=== PATIENT | female | born 1985 | race Caucasian/White ===

== ENCOUNTER 2018-12-18 12:42 | Emergency (ER) | payer OTHER, SELFPAY ==
[2018-12-18 14:06] VITALS: BP 125/86; PULSE 76; RESP 20; TEMP 36.6; O2SAT 97
[2018-12-18 14:12] VITALS: BP 125/86
[2018-12-18] MEDS: HYDROCODONE/ACET 5/325 TABLET 1 TAB PO (14:24)
--- NOTE | 2018-12-18 14:29 | DI.RAD.S_ITS ---
PROCEDURE: XR LUMBAR SPINE 2-3V INDICATIONS: back went out, fall, heard a pop, bilat leg numbness TECHNIQUE: 3 views of the lumbar spine were acquired. COMPARISON: None. FINDINGS: Bones: 5 [id number]-ryw-eurnpcv vertebrae are present. There is normal bony alignment. 11? of convex right lumbar spine scoliosis. No vertebral body compression fractures. No suspicious bony lesions. Mild L1-L2 and L2-L3 degenerative disc disease. Soft tissues: Overlying bowel gas pattern is normal. No suspicious soft tissue calcifications. IMPRESSION: No fracture. No acute osseous lesion. If symptoms and/or clinical suspicion for pathology persists, evaluation with MRI may be helpful for further assessment. Dictated by: Shantell Quinones MD, PhD on 12/18/2018 at 14:53 Approved by: Shantell Quinones MD, PhD on 12/18/2018 at 14:54
[2018-12-18] MEDS: CYCLOBENZAPRINE 10 MG TABLET PO (15:39)
--- NOTE | 2018-12-18 16:41 | ED.BACK ---
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 She had an initial injury early last month where she was assisting a resident from bed and lifting when the resident caused her to twist following which she felt a pop in her low back and had shooting pain in her left leg. She states that she followed up at the walk-in clinic and was getting considerably better with the exercise she was doing, but pain has not fully resolved from that. She states that today she crouched down and when she went to stand up, she heard and felt an audible pop in her back. The person next to her her this as well. She states that she then had severe pain that caused her to go down her hands and knees. She states that she feels pain throughout her lower back the, radiates down the back of her legs to both knee areas but more so on the left. She states this is better standing and leaning against a wall, much worse with trying to sit. She states that she is able to walk slowly, not able to twist and bend at all. She denies any difficulty urinating, new groin numbness, or weakness or numbness in the legs and states that it is pain that keeps her from movement. She has had a dose of [place] and Flexeril and states that pain is not significantly improved. She that she has history of sciatica previously but this is not similar. She also has a history of kidney stones but this pain does not feel at all like that. She has not had any new urinary symptoms or hematuria. She does not feel like this is a new injury, thinks it is an exacerbation of what she injured last month at work. [employer] claim number: [id number] Related Data Home Medications Medication Instructions Recorded Confirmed acetaminophen 500 mg tablet 500 mg PO Q6H PRN 07/27/18 07/27/18 [id number] 250 1 tab PO Q4-6H PRN 07/27/18 07/27/18 mg-250 mg-65 mg tablet Previous Rx's Medication Instructions Recorded hydrocodone-acetaminophen [[place]] 1 tab PO Q4-6H PRN #8 tab 12/18/18 lidocaine [Lidoderm] 3 patch TOP DAILY #30 each 12/18/18 meloxicam 15 mg PO DAILY #14 tab 12/18/18 tizanidine 4 mg PO Q6-8H PRN #10 cap 12/18/18 Allergies Allergy/AdvReac Type Severity Reaction Status Date / Time sulfamethoxazole Allergy Severe Seizures, Verified 07/27/18 19:21 [From Bactrim] rash, fever, swelling trimethoprim [From Bactrim] Allergy Severe Seizures, Verified 07/27/18 19:21 rash, fever, swelling Review of Systems <Belkis Caal PA-C - Last Filed: 12/18/18 22:04> Review of Systems ROS Unobtainable: All systems reviewed & are unremarkable except as noted in HPI and below PFSH <Belkis Caal PA-C - Last Filed: 12/18/18 22:04> Medical History Lumbar strain (Chronic) Nephrolithiasis (Chronic) Radicular pain of both lower extremities (Chronic) Surgical History History of lithotripsy (Resolved) Status post ORIF of fracture of ankle (Resolved) Social History Smoking Status: Never smoker Social History Smoking Status: Never smoker Exam <Belkis Caal PA-C - Last Filed: 12/18/18 22:04> Narrative Exam Narrative: GENERAL APPEARANCE: Patient standing, appears uncomfortable, in NAD PULMONARY: Lungs clear to auscultation bilaterally CV: Regular rhythm regular without murmur, normal S1 and S2, no S3 or S4 MUSCULOSKELETAL: Mild tenderness over the mid to inferior lumbar spine, more tenderness over the inferior to mid lumbar musculature throughout, most on the left, also tender over the left SI area. She is able to fully extend the spine but can flex only to 10 or 15?, will not attempt rotation or lateral bend secondary to tenderness. She is able to walk with a timid gait but no ft drop. Lower extremity strength 5/5 bilateral hip flexors, knee extensors, foot plantar flexion. Positive left modified straight leg raise NEUROLOGIC: Sensation is grossly intact through the lower extremities DERMATOLOGIC: No exanthem Initial Vital Signs Initial Vital Signs: Vital Signs Temperature 97.9 F 12/18/18 14:06 Pulse Rate 76 12/18/18 14:06 Respiratory Rate 20 12/18/18 14:06 Blood Pressure 125/86 12/18/18 14:06 Pulse Oximetry 97 12/18/18 14:06 <Tamiko Garcia DO - Last Filed: 12/19/18 08:14> Initial Vital Signs Initial Vital Signs: Vital Signs Temperature 97.9 F 12/18/18 14:06 Pulse Rate 76 12/18/18 14:06 Respiratory Rate 20 12/18/18 14:06 Blood Pressure 125/86 12/18/18 14:06 Pulse Oximetry 97 12/18/18 14:06 Course <Belkis Caal PA-C - Last Filed: 12/18/18 22:04> Additional Information: Patient states that she was advised to fill out new L and I paperwork however she still had pain from her injury early last month and it was clearly not resolved. This appears to be a real exacerbation of her previous injury and I explained her that this should be continued under her previous claim. She agreed to return if any acutely worsening symptoms, otherwise remain off of work and follow up with previous L and I provider or clinic that she saw since she does not have a PCP. Return to work to be determined at that visit depending upon her progress. She will likely need physical therapy Orders Ordered: Discontinued Medications Hydrocodone Bitart/Acetaminophen ([place] 5/325) 1 tab PO NOW ONE Stop: 12/18/18 14:14 Last Admin: 12/18/18 14:24 Dose: 1 tab Cyclobenzaprine HCl (Flexeril) 10 mg PO NOW ONE Stop: 12/18/18 15:40 Last Admin: 12/18/18 15:39 Dose: 10 mg Ibuprofen (Advil) 800 mg PO NOW ONE Stop: 12/18/18 16:56 Last Admin: 12/18/18 17:23 Dose: 800 mg Vital Signs - 8 hr 12/18/18 14:06 12/18/18 14:12 Temperature 97.9 F Pulse Rate 76 Respiratory Rate 20 Blood Pressure 125/86 Blood Pressure [Left Arm] 125/86 Pulse Oximetry 97 <Tamiko Garcia DO - Last Filed: 12/19/18 08:14> Orders Ordered: Discontinued Medications Hydrocodone Bitart/Acetaminophen ([place] 5/325) 1 tab PO NOW ONE Stop: 12/18/18 14:14 Last Admin: 12/18/18 14:24 Dose: 1 tab Cyclobenzaprine HCl (Flexeril) 10 mg PO NOW ONE Stop: 12/18/18 15:40 Last Admin: 12/18/18 15:39 Dose: 10 mg Ibuprofen (Advil) 800 mg PO NOW ONE Stop: 12/18/18 16:56 Last Admin: 12/18/18 17:23 Dose: 800 mg Vital Signs - 8 hr 12/18/18 14:06 12/18/18 14:12 Temperature 97.9 F Pulse Rate 76 Respiratory Rate 20 Blood Pressure 125/86 Blood Pressure [Left Arm] 125/86 Pulse Oximetry 97 MDM - Back Pain/Injury <Belkis Caal PA-C - Last Filed: 12/18/18 22:04> Lab Data Point of Care Testing Test Results Negative <Tamiko Garcia DO - Last Filed: 12/19/18 08:14> Lab Data Point of Care Testing Test Results Negative Discharge Plan Departure Patient Disposition: Home Clinical Impression: Lumbar radiculopathy Strain of lumbar region Qualifiers: Encounter type: initial encounter Qualified Code(s): S39.012A - Strain of muscle, fascia and tendon of lower back, initial encounter Discharge Date/Time: 12/18/18 17:30 Interventions: ED Discharge Assessment Last Done: 12/18/18 17:27 Instructions: DI for Back Pain With Sciatica, DI for Back Spasm Activity Restrictions/Additional Instructions: Please return if you have acutely worsening symptoms as we discussed, or new symptoms such as inability to urinate or weakness in your legs. Otherwise, please rest your back. Gentle walking is okay but avoid twisting and lifting. I have sent a once daily anti-inflammatory pain medicine to the pharmacy for you for you to take as soon as you pick it up. I also sent in a different muscle relaxant called tizanidine for you to try. In addition, please try the pain patches on the most sore areas of your back, and you can use the hydrocodone/acetaminophen as needed but remember it can make you sleepy and you may need to take a stool softener with this as well as it can cause constipation. Please follow-up at the walk-in clinic in a few days to reassess. I agree with you that this is likely related to your injury from November since you were not completely better before this occurred, and you may need further treatment such as physical therapy before returning to full duty at work. You should remain off for the next few days until you follow up at the clinic for reassessment Prescriptions: New hydrocodone-acetaminophen [[place]] 5-325 mg tablet 1 tab PO Q4-6H PRN (Reason: acute sciatia/back pain) Qty: 8 RF: 0 meloxicam 15 mg tablet 15 mg PO DAILY Qty: 14 RF: 0 lidocaine [Lidoderm] 5 % adhesive patch,medicated 3 patch TOP DAILY Qty: 30 RF: 0 tizanidine 4 mg capsule 4 mg PO Q6-8H PRN (Reason: muscle spasticity) Qty: 10 RF: 0 Discontinued ibuprofen 800 mg tablet 800 mg PO TID RF: 0 No Action acetaminophen [Tylenol Extra Strength] 500 mg tablet 500 mg PO Q6H PRNRF: 0 [id number] [Excedrin Migraine] 250-250-65 mg tablet 1 tab PO Q4-6H PRNRF: 0 Referrals: Mayank Pizano PA-C [[employer]] - <Tamiko Garcia DO - Last Filed: 12/19/18 08:14> [facility] ED Attending Bethature Attestation: I was immediately available in the department for consultation. Documentation has been reviewed. I agree with assessment and plan.
--- NOTE | 2018-12-18 17:04 | ED_ITS ---
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 She had an initial injury early last month where she was assisting a resident from bed and lifting when the resident caused her to twist following which she felt a pop in her low back and had shooting pain in her left leg. She states that she followed up at the walk-in clinic and was getting considerably better with the exercise she was doing, but pain has not fully resolved from that. She states that today she crouched down and when she went to stand up, she heard and felt an audible pop in her back. The person next to her her this as well. She states that she then had severe pain that caused her to go down her hands and knees. She states that she feels pain throughout her lower back the, radiates down the back of her legs to both knee areas but more so on the left. She states this is better standing and leaning against a wall, much worse with trying to sit. She states that she is able to walk slowly, not able to twist and bend at all. She denies any difficulty urinating, new groin numbness, or weakness or numbness in the legs and states that it is pain that keeps her from movement. She has had a dose of [place] and Flexeril and states that pain is not significantly improved. She that she has history of sciatica previously but this is not similar. She also has a history of kidney stones but this pain does not feel at all like that. She has not had any new urinary symptoms or hematuria. She does not feel like this is a new injury, thinks it is an exacerbation of what she injured last month at work. [employer] claim number: [id number] Related Data Home Medications Medication Instructions Recorded Confirmed acetaminophen 500 mg tablet 500 mg PO Q6H PRN 07/27/18 07/27/18 [id number] 250 1 tab PO Q4-6H PRN 07/27/18 07/27/18 mg-250 mg-65 mg tablet Previous Rx's Medication Instructions Recorded hydrocodone-acetaminophen [[place]] 1 tab PO Q4-6H PRN #8 tab 12/18/18 lidocaine [Lidoderm] 3 patch TOP DAILY #30 each 12/18/18 meloxicam 15 mg PO DAILY #14 tab 12/18/18 tizanidine 4 mg PO Q6-8H PRN #10 cap 12/18/18 Allergies Allergy/AdvReac Type Severity Reaction Status Date / Time sulfamethoxazole Allergy Severe Seizures, Verified 07/27/18 19:21 [From Bactrim] rash, fever, swelling trimethoprim [From Bactrim] Allergy Severe Seizures, Verified 07/27/18 19:21 rash, fever, swelling Review of Systems <Belkis Caal PA-C - Last Filed: 12/18/18 22:04> Review of Systems ROS Unobtainable: All systems reviewed & are unremarkable except as noted in HPI and below PFSH <Belkis Caal PA-C - Last Filed: 12/18/18 22:04> Medical History Lumbar strain (Chronic) Nephrolithiasis (Chronic) Radicular pain of both lower extremities (Chronic) Surgical History History of lithotripsy (Resolved) Status post ORIF of fracture of ankle (Resolved) Social History Smoking Status: Never smoker Social History Smoking Status: Never smoker Exam <Belkis Caal PA-C - Last Filed: 12/18/18 22:04> Narrative Exam Narrative: GENERAL APPEARANCE: Patient standing, appears uncomfortable, in NAD PULMONARY: Lungs clear to auscultation bilaterally CV: Regular rhythm regular without murmur, normal S1 and S2, no S3 or S4 MUSCULOSKELETAL: Mild tenderness over the mid to inferior lumbar spine, more tenderness over the inferior to mid lumbar musculature throughout, most on the left, also tender over the left SI area. She is able to fully extend the spine but can flex only to 10 or 15?, will not attempt rotation or lateral bend secondary to tenderness. She is able to walk with a timid gait but no ft drop. Lower extremity strength 5/5 bilateral hip flexors, knee extensors, foot plantar flexion. Positive left modified straight leg raise NEUROLOGIC: Sensation is grossly intact through the lower extremities DERMATOLOGIC: No exanthem Initial Vital Signs Initial Vital Signs: Vital Signs Temperature 97.9 F 12/18/18 14:06 Pulse Rate 76 12/18/18 14:06 Respiratory Rate 20 12/18/18 14:06 Blood Pressure 125/86 12/18/18 14:06 Pulse Oximetry 97 12/18/18 14:06 <Tamiko Garcia DO - Last Filed: 12/19/18 08:14> Initial Vital Signs Initial Vital Signs: Vital Signs Temperature 97.9 F 12/18/18 14:06 Pulse Rate 76 12/18/18 14:06 Respiratory Rate 20 12/18/18 14:06 Blood Pressure 125/86 12/18/18 14:06 Pulse Oximetry 97 12/18/18 14:06 Course <Belkis Caal PA-C - Last Filed: 12/18/18 22:04> Additional Information: Patient states that she was advised to fill out new L and I paperwork however she still had pain from her injury early last month and it was clearly not resolved. This appears to be a real exacerbation of her previous injury and I explained her that this should be continued under her previous claim. She agreed to return if any acutely worsening symptoms, otherwise remain off of work and follow up with previous L and I provider or clinic that she saw since she does not have a PCP. Return to work to be determined at that visit depending upon her progress. She will likely need physical therapy Orders Ordered: Discontinued Medications Hydrocodone Bitart/Acetaminophen ([place] 5/325) 1 tab PO NOW ONE Stop: 12/18/18 14:14 Last Admin: 12/18/18 14:24 Dose: 1 tab Cyclobenzaprine HCl (Flexeril) 10 mg PO NOW ONE Stop: 12/18/18 15:40 Last Admin: 12/18/18 15:39 Dose: 10 mg Ibuprofen (Advil) 800 mg PO NOW ONE Stop: 12/18/18 16:56 Last Admin: 12/18/18 17:23 Dose: 800 mg Vital Signs - 8 hr 12/18/18 14:06 12/18/18 14:12 Temperature 97.9 F Pulse Rate 76 Respiratory Rate 20 Blood Pressure 125/86 Blood Pressure [Left Arm] 125/86 Pulse Oximetry 97 <Tamiko Garcia DO - Last Filed: 12/19/18 08:14> Orders Ordered: Discontinued Medications Hydrocodone Bitart/Acetaminophen ([place] 5/325) 1 tab PO NOW ONE Stop: 12/18/18 14:14 Last Admin: 12/18/18 14:24 Dose: 1 tab Cyclobenzaprine HCl (Flexeril) 10 mg PO NOW ONE Stop: 12/18/18 15:40 Last Admin: 12/18/18 15:39 Dose: 10 mg Ibuprofen (Advil) 800 mg PO NOW ONE Stop: 12/18/18 16:56 Last Admin: 12/18/18 17:23 Dose: 800 mg Vital Signs - 8 hr 12/18/18 14:06 12/18/18 14:12 Temperature 97.9 F Pulse Rate 76 Respiratory Rate 20 Blood Pressure 125/86 Blood Pressure [Left Arm] 125/86 Pulse Oximetry 97 MDM - Back Pain/Injury <Belkis Caal PA-C - Last Filed: 12/18/18 22:04> Lab Data Point of Care Testing Test Results Negative <Tamiko Garcia DO - Last Filed: 12/19/18 08:14> Lab Data Point of Care Testing Test Results Negative Discharge Plan Departure Patient Disposition: Home Clinical Impression: Lumbar radiculopathy Strain of lumbar region Qualifiers: Encounter type: initial encounter Qualified Code(s): S39.012A - Strain of muscle, fascia and tendon of lower back, initial encounter Discharge Date/Time: 12/18/18 17:30 Interventions: ED Discharge Assessment Last Done: 12/18/18 17:27 Instructions: DI for Back Pain With Sciatica, DI for Back Spasm Activity Restrictions/Additional Instructions: Please return if you have acutely worsening symptoms as we discussed, or new symptoms such as inability to urinate or weakness in your legs. Otherwise, please rest your back. Gentle walking is okay but avoid twisting and lifting. I have sent a once daily anti-inflammatory pain medicine to the pharmacy for you for you to take as soon as you pick it up. I also sent in a different muscle relaxant called tizanidine for you to try. In addition, please try the pain patches on the most sore areas of your back, and you can use the hydrocodone/acetaminophen as needed but remember it can make you sleepy and you may need to take a stool softener with this as well as it can cause constipation. Please follow-up at the walk-in clinic in a few days to reassess. I agree with you that this is likely related to your injury from November since you were not completely better before this occurred, and you may need further treatment such as physical therapy before returning to full duty at work. You should remain off for the next few days until you follow up at the clinic for reassessment Prescriptions: New hydrocodone-acetaminophen [[place]] 5-325 mg tablet 1 tab PO Q4-6H PRN (Reason: acute sciatia/back pain) Qty: 8 RF: 0 meloxicam 15 mg tablet 15 mg PO DAILY Qty: 14 RF: 0 lidocaine [Lidoderm] 5 % adhesive patch,medicated 3 patch TOP DAILY Qty: 30 RF: 0 tizanidine 4 mg capsule 4 mg PO Q6-8H PRN (Reason: muscle spasticity) Qty: 10 RF: 0 Discontinued ibuprofen 800 mg tablet 800 mg PO TID RF: 0 No Action acetaminophen [Tylenol Extra Strength] 500 mg tablet 500 mg PO Q6H PRNRF: 0 [id number]-hiroswhxfovcm-ulwjtvaa [Excedrin Migraine] 250-250-65 mg tablet 1 tab PO Q4-6H PRNRF: 0 Referrals: Mayank Pizano PA-C [[employer] Technical Director] - <Tamiko Garcia DO - Last Filed: 12/19/18 08:14> [facility] ED Attending Bethature Attestation: I was immediately available in the department for consultation. Documentation has been reviewed. I agree with assessment and plan.
[2018-12-18] MEDS: IBUPROFEN 400 MG TABLET 800 MG PO (17:23)
== END 2018-12-18 17:30 | disposition home or self-care (01) ==
PROVIDERS: Emergency Provider Internal Medicine
DX: S39.012A Strain of muscle, fascia and tendon of lower back, initial encounter (principal); M54.16 Radiculopathy, lumbar region; X50.0XXA Overexertion from strenuous movement or load, initial encounter; Y99.0 Civilian activity done for income or pay
CPT/HCPCS: 72100; 81025; 99282; 99284

== ENCOUNTER 2019-03-28 21:30 | Emergency (ER) | payer OTHER, SELFPAY ==
--- NOTE | 2019-03-28 21:31 | ED.GENADULT ---
HPI - General Adult General Chief complaint: Animal Bite Stated complaint: CAT BITES TO HANDS Time Seen by Provider: 03/28/19 21:31 Source: patient Mode of arrival: ambulatory Limitations: no limitations History of Present Illness HPI narrative: Patient is a 33-year-old female here for evaluation of cat bites and scratches to bilateral hands. 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 She states that 1 of the residents light and a stray cat and when the patient tried to get the cat out the door it started biting her. She does not know when her last tetanus shot was. She did wash her hands prior to my arrival. This was a stray cat. Related Data Home Medications Medication Instructions Recorded Confirmed acetaminophen 500 mg tablet 500 mg PO Q6H PRN 07/27/18 07/27/18 ivbahtw-mimciryhtszor-npzvhoap 250 1 tab PO Q4-6H PRN 07/27/18 07/27/18 mg-250 mg-65 mg tablet Previous Rx's Medication Instructions Recorded lidocaine [Lidoderm] 3 patch TOP DAILY #30 each 12/18/18 meloxicam 15 mg PO DAILY #14 tab 12/18/18 tizanidine 4 mg PO Q6-8H PRN #10 cap 12/18/18 tamsulosin 0.4 mg capsule 0.4 mg PO DAILY #14 cap 03/09/19 amoxicillin-pot clavulanate 1 tab PO BID 7 Days #14 tab 03/28/19 [Augmentin] Allergies Allergy/AdvReac Type Severity Reaction Status Date / Time sulfamethoxazole Allergy Severe Seizures, Verified 03/28/19 21:39 [From Bactrim] rash, fever, swelling trimethoprim [From Bactrim] Allergy Severe Seizures, Verified 03/28/19 21:39 rash, fever, swelling Review of Systems Constitutional Denies fever(s) Cardiovascular Denies dyspnea Respiratory Denies dyspnea Musculoskeletal Denies myalgias, Denies arthralgias and Denies tingling Integumentary/Breasts Comments: Multiple scratches to bilateral hands Neurologic Denies tingling and Denies paresthesias Hematologic/Lymphatic Denies easy bleeding and Denies easy bruising [facility] [place] Medical History Lumbar strain (Chronic) Nephrolithiasis (Chronic) Radicular pain of both lower extremities (Chronic) Surgical History (Updated 12/18/18 @ 17:02 by Belkis Caal PA-C) History of lithotripsy (Resolved) Status post ORIF of fracture of ankle (Resolved) Social History Smoking Status: Never smoker Social History Smoking Status: Never smoker Exam Initial Vital Signs Initial Vital Signs: Vital Signs Temperature 97.7 F 03/28/19 21:39 Pulse Rate 97 H 03/28/19 21:39 Respiratory Rate 16 03/28/19 21:39 Blood Pressure 172/109 H 03/28/19 21:39 Pulse Oximetry 98 03/28/19 21:39 Const General: cooperative, healthy appearing, comfortable, well developed, well groomed and No acute distress Orientation: alert and awake Cardio Pulses: radial pulses present bilaterally Skin Other: Patient with multiple puncture wounds and superficial scratches to bilateral hands. No active bleeding. Neuro Sensory Exam: no sensory deficits noted Extrem Other: Full range of motion of wrists and finger joints in bilateral hands. Course Orders Ordered: ED Orders 03/28/19 21:36 XR hand LT min 3V Stat XR hand RT min 3V Stat Discontinued Medications Amoxicillin/Clavulanate Potassium (Augmentin 875-125 Mg) 1 tab PO NOW ONE Stop: 03/28/19 21:37 Last Admin: 03/28/19 21:48 Dose: 1 tab Diphtheria/Tetanus/Acell Pertussis (Adacel) 0.5 ml IM .ONCE ONE Stop: 03/28/19 21:37 Last Admin: 03/28/19 21:48 Dose: 0.5 ml Vital Signs - 8 hr 03/28/19 21:39 Temperature 97.7 F Pulse Rate 97 H Respiratory Rate 16 Blood Pressure 172/109 H Pulse Oximetry 98 Medical Decision Making Imaging Data X-ray left hand: Radiologist's impression: [address] [address] XRay Report Signed Patient: Pavithra Comer MMR#: [id number] : 1985Acct:[id number] Age/Sex: 33 / FDate of Service: 03/28/19 Loc: ED Accession Number: [id number] Procedure: XR hand LT min 3V Ordering Provider: Jasper Geiger D.O. PROCEDURE: XR HAND LT MIN 3V INDICATIONS: Cat bite. Eval for foreign body TECHNIQUE: 3 views of the hand(s) acquired. COMPARISON: [facility], , XR HAND RT MIN 3V, 03/28/2019, 21:41. FINDINGS: Bones: No fractures or dislocations. Carpal bones are normally aligned. No suspicious bony lesions. Soft tissues: No radiopaque foreign bodies or suspicious soft tissue calcifications. IMPRESSION: 1. No fracture or radiopaque foreign bodies. Dictated by: Harjinder Adorno M.D. on 03/28/2019 at 22:28 Approved by: Harjinder Adorno M.D. on 03/28/2019 at 22:31 X-ray right hand: Radiologist's impression: [address] [address] XRay Report Signed Patient: Pavithra Comer MMR#: [id number] : 1985Acct:[id number] Age/Sex: 33 / FDate of Service: 03/28/19 Loc: ED Accession Number: [id number] Procedure: XR hand RT min 3V Ordering Provider: Jasper Geiger D.O. PROCEDURE: XR HAND RT MIN 3V INDICATIONS: Cat bite eval for foreign body TECHNIQUE: 3 views of the hand(s) acquired. COMPARISON: None. FINDINGS: Bones: No fractures or dislocations. Carpal bones are normally aligned. No suspicious bony lesions. Soft tissues: No radiopaque foreign bodies or suspicious soft tissue calcifications. IMPRESSION: 1. No fracture or radiopaque foreign bodies. Dictated by: Harjinder Adorno M.D. on 03/28/2019 at 22:32 Approved by: Harjinder Adorno M.D. on 03/28/2019 at 22:32 [facility] Narrative Medical decision making narrative: Patient's tetanus was updated. X-ray showed no signs of foreign bodies. All of the scratches and puncture wounds are superficial. No intervention needed here in the emergency department. She was cleaned extensively. She was given a 1st dose of antibiotics here in the emergency department a prescription for Augmentin to take home. No restrictions on her daily activities at work. I do feel this is a low risk for rabies. Will hold on any treatment for that now. Patient was given return precautions and follow-up instructions. She expressed understanding and agreement with plan. Discharge Plan Departure Patient Disposition: Home Clinical Impression: Bite by animal Cat bite Qualifiers: Encounter type: initial encounter Qualified Code(s): W55.01XA - Bitten by cat, initial encounter Instructions: DI for Animal Bites, DI for Cat Bite Activity Restrictions/Additional Instructions: Keep your hands clean using soap and water. You were given your 1st dose of antibiotics here in the emergency department. Fill the prescription and start taking them as directed tomorrow. Contact your primary care provider for a follow-up. Return to the emergency department for any new or worsening symptoms Prescriptions: New amoxicillin-pot clavulanate [Augmentin] 875-125 mg tablet 1 tab PO BID 7 Days Qty: 14 RF: 0 No Action acetaminophen [Tylenol Extra Strength] 500 mg tablet 500 mg PO Q6H PRNRF: 0 fqdhlqk-ebtaprvatxuio-gvqtarrk [Excedrin Migraine] 250-250-65 mg tablet 1 tab PO Q4-6H PRNRF: 0 tamsulosin 0.4 mg capsule 0.4 mg PO DAILY Qty: 14 RF: 0 meloxicam 15 mg tablet 15 mg PO DAILY Qty: 14 RF: 0 lidocaine [Lidoderm] 5 % adhesive patch,medicated 3 patch TOP DAILY Qty: 30 RF: 0 tizanidine 4 mg capsule 4 mg PO Q6-8H PRN (Reason: muscle spasticity) Qty: 10 RF: 0
--- NOTE | 2019-03-28 21:36 | DI.RAD.S_ITS ---
PROCEDURE: XR HAND RT MIN 3V INDICATIONS: Cat bite eval for foreign body TECHNIQUE: 3 views of the hand(s) acquired. COMPARISON: None. FINDINGS: Bones: No fractures or dislocations. Carpal bones are normally aligned. No suspicious bony lesions. Soft tissues: No radiopaque foreign bodies or suspicious soft tissue calcifications. IMPRESSION: 1. No fracture or radiopaque foreign bodies. Dictated by: Harjinder Adorno M.D. on 03/28/2019 at 22:32 Approved by: Harjinder Adorno M.D. on 03/28/2019 at 22:32
--- NOTE | 2019-03-28 21:36 | DI.RAD.S_ITS ---
PROCEDURE: XR HAND LT MIN 3V INDICATIONS: Cat bite. Eval for foreign body TECHNIQUE: 3 views of the hand(s) acquired. COMPARISON: [facility], CR, XR HAND RT MIN 3V, 03/28/2019, 21:41. FINDINGS: Bones: No fractures or dislocations. Carpal bones are normally aligned. No suspicious bony lesions. Soft tissues: No radiopaque foreign bodies or suspicious soft tissue calcifications. IMPRESSION: 1. No fracture or radiopaque foreign bodies. Dictated by: Harjinder Adorno M.D. on 03/28/2019 at 22:28 Approved by: Harjinder Adorno M.D. on 03/28/2019 at 22:31
[2019-03-28 21:39] VITALS: BP 172/109; PULSE 97; RESP 16; TEMP 36.5; O2SAT 98; BMI 34.0
[2019-03-28] MEDS: TET,DIPH,PERTUSS(ACELL),VAC/PF 0.5 ML SYRINGE IM (21:48)
[2019-03-28] MEDS: AMOXICILLIN/CLAV 875/125 MG 1 TAB PO (21:48)
--- NOTE | 2019-03-28 21:55 | PC.NURSE ---
Patient has multiple scratches and cuts to hand. None of significant depth.
[2019-03-28 22:35] VITALS: BP 160/91; PULSE 82; RESP 18; TEMP 36.5; O2SAT 96
== END 2019-03-28 22:35 | disposition home or self-care (01) ==
PROVIDERS: Emergency Provider Emergency Medicine
DX: S60.512A Abrasion of left hand, initial encounter (principal); S60.511A Abrasion of right hand, initial encounter; W55.01XA Bitten by cat, initial encounter; Y99.0 Civilian activity done for income or pay; Z23 Encounter for immunization
CPT/HCPCS: 73130; 90471; 99283; 90715

== ENCOUNTER 2019-05-23 15:16 | Emergency (ER) | payer OTHER, SELFPAY ==
[2019-05-23 15:27] VITALS: BP 148/93; PULSE 77; RESP 20; TEMP 36.5; O2SAT 98; BMI 33.5
[2019-05-23] MEDS: SODIUM CHLORIDE 0.9% 500 ML 1000 ML IV (18:17)
[2019-05-23] MEDS: KETOROLAC 60 MG/2 ML VIAL 30 MG IV (18:17)
[2019-05-23] MEDS: ONDANSETRON 4 MG/2 ML INJ IV (18:17)
--- NOTE | 2019-05-23 18:19 | DI.CT.S_ITS ---
PROCEDURE: CT KIDNEY URETER BLADDER (KUB) INDICATIONS: flank pain, hx stones TECHNIQUE: Noncontrast 5 mm thick sections acquired from the diaphragms to the symphysis. 5 mm thick coronal and sagittal reformats were then performed. For radiation dose reduction, the following was used: automated exposure control, adjustment of mA and/or kV according to patient size. COMPARISON: None. FINDINGS: Image quality: Excellent. Lung bases: Lung bases are clear. Heart size is normal. Urinary system: Both kidneys are normal in size. Small, 1 mm nonobstructing stone is noted in the right kidney. A small 1-2 mm nonobstructing stone is noted in the left kidney. There is a 6 mm in diameter stone in the left UVJ causing moderate left-sided hydroureteronephrosis. No right-sided hydronephrosis. . Bladder wall thickness is normal; no calcified bladder stones. Other solid organs: Liver is normal in size. Diffuse fatty infiltration of the liver. Gallbladder is within normal limits. Pancreas is normal in contours. Spleen is normal in size. No adrenal nodules. Peritoneum and bowel: Unenhanced bowel loops demonstrate normal wall thickness and caliber. No free fluid or air. Nodes and vessels: No retroperitoneal or mesenteric adenopathy by size criteria. Aorta and inferior vena cava are normal in caliber. Abdominal wall: No ventral hernias. Pelvis: No free pelvic fluid. No inguinal hernias or adenopathy. Intrauterine device is positioned centrally within the uterus. Bones: No suspicious bony lesions. No vertebral body compression fractures. IMPRESSION: 1. 6 mm left UVJ stone causing moderate left-sided hydroureteronephrosis. 2. Small 1-2 mm non-obstructing bilateral renal stones. 3. Diverticulosis. Dictated by: Shantell Quinones MD, PhD on 05/23/2019 at 19:01 Approved by: Shantell Quinones MD, PhD on 05/23/2019 at 19:04
[2019-05-23 18:25] LABS: Add Manual Diff / Slide Review NO; Basophils Absolute Auto 100 /uL (0-100); Basophils Percent Auto 0.4 % (0-2); Eosinophils Absolute Auto 100 /uL (0-450); Eosinophils Percent Auto 0.4 % (2-4); Hematocrit 43.4 % (36-46); Hemoglobin 14.8 g/dL (12.0-16.0); Lymphocytes Absolute Auto 1700 /uL (1100-4500); Lymphocytes Percent Auto 11.9 % (25-40); Mean Corpuscular HGB Conc 34.2 % (30-36); Mean Corpuscular Hemoglobin 30.5 PG (26-34); Mean Corpuscular Volume 89.3 fL (80-100); Monocytes Absolute Auto 800 /uL (0-900); Monocytes Percent Auto 5.9 % (3-14); Neutrophils Absolute Auto 11700 /uL (1500-7000); Neutrophils Percent Auto 81.4 % (50-75); Platelet Count 412 X10^3/uL (150-400); Red Blood Cell Count 4.86 X10^6/uL (4.0-5.2); Red Cell Distribution Width 12.5 % (11.6-14.8); White Blood Cell Count 14.4 X10^3/uL (4.5-11.0)
[2019-05-23 18:31] VITALS: BP 139/87; PULSE 79; RESP 17; O2SAT 100
[2019-05-23 18:33] LABS: Alanine Aminotransferase 85 IU/L (9-52); Albumin 4.5 g/dL (3.5-5.0); Albumin Globulin Ratio 1.3 (1.0-2.8); Alkaline Phosphatase 93 U/L (38-126); Amylase 60 U/L (30-110); Aspartate Aminotransferase 62 IU/L (14-36); BUN Creatinine Ratio 11.1 (6-22); Bilirubin Total 0.9 mg/dL (0.2-1.3); Blood Urea Nitrogen 10 mg/dL (7-17); Calcium 9.4 mg/dL (8.4-10.2); Carbon Dioxide 26 mmol/L (22-32); Chloride 102 mmol/L (98-107); Estimated Glomerular Filt Rate > 60.0 mL/min (>60); Globulin 3.4 g/dL (1.7-4.1); Glucose 99 mg/dL (70-100); Lipase 41 U/L (23-300); Sodium 138 mmol/L (137-145); Total Protein 7.9 g/dL (6.3-8.2)
[2019-05-23 18:36] LABS: HEMOLYSIS 52 (0-50)
[2019-05-23 18:37] LABS: Potassium 4.3 mmol/L (3.4-5.1)
[2019-05-23 18:59] LABS: WBC Urine None Seen (0-5/HPF)
[2019-05-23 19:11] LABS: Amorphous Sediment Urine 1+; Bacteria Urine Few (2-10); RBC Urine 5-10/HPF (0-5/HPF)
[2019-05-23 19:12] LABS: Culture Indicated Urine Cult Not Indicated; Squamous Epithelial Cell Urine 1-5 /HPF (0-5/HPF)
[2019-05-23] MEDS: HYDROCODONE/ACET 5/325 TABLET 2 TAB PO (19:34)
[2019-05-23] MEDS: MORPHINE 4 MG/ML INJ IV (19:35)
[2019-05-23] MEDS: HYDROMORPHONE 0.5 MG INJ IV (20:24)
[2019-05-23 20:25] VITALS: BP 139/93; PULSE 81; RESP 18; O2SAT 98
--- NOTE | 2019-05-23 20:31 | ED.FEMALEGU ---
HPI - Female Genitourinary <FABIAN Asencio - Last Filed: 05/23/19 20:52> General Chief complaint: Urogenital-Female Stated complaint: Kidney Stones Time Seen by Provider: 05/23/19 16:57 Source: patient Mode of arrival: ambulatory Limitations: no limitations History of Present Illness HPI Narrative: The patient is a 33-year-old female current smoker with history of kidney stones who presents with a chief complaint of left flank pain. She states it started 4:00 a.m.. She believes she has another kidney stone. She tried 2 doses of ibuprofen, was recently at 10:00 a.m.. She has been trying to push fluids, but the pain got so bad she vomited. She denies any dysuria urgency or frequency. She denies any vaginal symptoms. She denies any fevers. She denies any hematuria. Related Data Home Medications Medication Instructions Recorded Confirmed acetaminophen 500 mg tablet 500 mg PO Q6H PRN 07/27/18 07/27/18 aadhmxh-pwnyeoobfqsqf-fewcgfce 250 1 tab PO Q4-6H PRN 07/27/18 07/27/18 mg-250 mg-65 mg tablet Previous Rx's Medication Instructions Recorded lidocaine [Lidoderm] 3 patch TOP DAILY #30 each 12/18/18 meloxicam 15 mg PO DAILY #14 tab 12/18/18 tizanidine 4 mg PO Q6-8H PRN #10 cap 12/18/18 tamsulosin 0.4 mg capsule 0.4 mg PO DAILY #14 cap 03/09/19 hydrocodone-acetaminophen [[place]on [place]y] 1 tab PO Q4-6H PRN #10 tab 05/23/19 ketorolac 10 mg PO TID PRN #20 tab 05/23/19 ondansetron 4 mg PO Q6H PRN #30 tab 05/23/19 tamsulosin [Flomax] 0.4 mg PO DAILY #7 cap 05/23/19 Allergies Allergy/AdvReac Type Severity Reaction Status Date / Time sulfamethoxazole Allergy Severe Seizures, Verified 03/28/19 21:39 [From Bactrim] rash, fever, swelling trimethoprim [From Bactrim] Allergy Severe Seizures, Verified 03/28/19 21:39 rash, fever, swelling Review of Systems <FABIAN Asencio - Last Filed: 05/23/19 20:52> Review of Systems GENERAL: Denies chills, fatigue, malaise, fever, sweats. HEENT: Denies sinus pain, ear pain, sore throat, difficulty swallowing, dizziness. RESPIRATORY: Denies dyspnea, cough, wheezing, hemoptysis, sputum. CARDIOVASCULAR: Denies chest pain, palpitations, orthopnea, edema, GASTROINTESTINAL: See HPI : See HPI MUSCULOSKELETAL: denies weakness, joint pain, or bony pain SKIN: Denies rash, skin lesions, or other NEUROLOGIC: Denies weakness, headache, numbness, change in speech, confusion, seizures, incoordination. PSYCHIATRIC: No concerning psychosocial issues. 12 point review of systems is negative except for those stated above PFSH <FABIAN Asencio - Last Filed: 05/23/19 20:52> Medical History Lumbar strain (Chronic) Nephrolithiasis (Chronic) Radicular pain of both lower extremities (Chronic) Surgical History History of lithotripsy (Resolved) Status post ORIF of fracture of ankle (Resolved) Social History Smoking Status: Never smoker Social History Smoking Status: Never smoker Exam <FABIAN Asencio - Last Filed: 05/23/19 20:52> Narrative Exam Narrative: GENERAL: This is a well-nourished, well-developed patient, in mild distress. HEAD: Atraumatic. Normocephalic. No temporal or scalp tenderness. EYES: Pupils equal round and reactive. Extraocular motions intact. No scleral icterus. No injection or drainage. ENT: Nose without bleeding, purulent drainage or septal hematoma. Throat without erythema, tonsillar hypertrophy or exudate. Uvula midline. Airway patent. NECK: Trachea midline. No JVD or lymphadenopathy. Supple, nontender, no meningeal signs. CARDIOVASCULAR: Regular rate and rhythm RESPIRATORY: Clear to auscultation. Breath sounds equal bilaterally. No wheezes, rales, or rhonchi. GASTROINTESTINAL: Abdomen soft, slight pain to palpation left lower quadrant., nondistended. No hepato-splenomegaly, or palpable masses. No guarding. Active bowel sounds all 4 quadrants. EXTREMITIES: No clubbing, cyanosis, or edema. No joint tenderness, effusion, or edema noted. BACK: Nontender without deformity or crepitance. CVA tenderness left side. NEURO: AOx3. SKIN: No rash or erythema. Initial Vital Signs Initial Vital Signs: Vital Signs Temperature 97.7 F 05/23/19 15:27 Pulse Rate 77 05/23/19 15:27 Respiratory Rate 20 05/23/19 15:27 Blood Pressure 148/93 H 05/23/19 15:27 Pulse Oximetry 98 05/23/19 15:27 <Claire Peters MD - Last Filed: 05/24/19 03:48> Initial Vital Signs Initial Vital Signs: Vital Signs Temperature 97.7 F 05/23/19 15:27 Pulse Rate 77 05/23/19 15:27 Respiratory Rate 20 05/23/19 15:27 Blood Pressure 148/93 H 05/23/19 15:27 Pulse Oximetry 98 05/23/19 15:27 Course <LISA Asencio-BC - Last Filed: 05/23/19 20:52> Orders Ordered: Discontinued Medications Hydrocodone Bitart/Acetaminophen ([place] 5/325) 2 tab PO NOW ONE Stop: 05/23/19 19:20 Last Admin: 05/23/19 19:34 Dose: 2 tab Hydromorphone HCl (Dilaudid) 0.5 mg IV NOW ONE Stop: 05/23/19 20:05 Last Admin: 05/23/19 20:24 Dose: 0.5 mg Sodium Chloride (Normal Saline 0.9%) 500 mls @ 1,000 mls/hr IV BOLUS ONE Stop: 05/23/19 17:45 Last Infusion: 05/23/19 19:30 Dose: 1,000 mls/hr Admin: 05/23/19 18:17 Dose: 1,000 mls/hr Ketorolac Tromethamine (Toradol) 30 mg IV NOW ONE Stop: 05/23/19 17:17 Last Admin: 05/23/19 18:17 Dose: 30 mg Morphine Sulfate (Morphine) 4 mg IV NOW ONE Stop: 05/23/19 18:56 Last Admin: 05/23/19 19:35 Dose: 4 mg Ondansetron HCl (Zofran) 4 mg IV NOW ONE Stop: 05/23/19 17:17 Last Admin: 05/23/19 18:17 Dose: 4 mg Vital Signs - 8 hr 05/23/19 20:25 Pulse Rate 81 Respiratory Rate 18 Blood Pressure [Right Arm] 139/93 H Pulse Oximetry 98 <Claire Peters MD - Last Filed: 05/24/19 03:48> Orders Ordered: Discontinued Medications Hydrocodone Bitart/Acetaminophen ([place] 5/325) 2 tab PO NOW ONE Stop: 05/23/19 19:20 Last Admin: 05/23/19 19:34 Dose: 2 tab Hydromorphone HCl (Dilaudid) 0.5 mg IV NOW ONE Stop: 05/23/19 20:05 Last Admin: 05/23/19 20:24 Dose: 0.5 mg Sodium Chloride (Normal Saline 0.9%) 500 mls @ 1,000 mls/hr IV BOLUS ONE Stop: 05/23/19 17:45 Last Infusion: 05/23/19 19:30 Dose: 1,000 mls/hr Admin: 05/23/19 18:17 Dose: 1,000 mls/hr Ketorolac Tromethamine (Toradol) 30 mg IV NOW ONE Stop: 05/23/19 17:17 Last Admin: 05/23/19 18:17 Dose: 30 mg Morphine Sulfate (Morphine) 4 mg IV NOW ONE Stop: 05/23/19 18:56 Last Admin: 05/23/19 19:35 Dose: 4 mg Ondansetron HCl (Zofran) 4 mg IV NOW ONE Stop: 05/23/19 17:17 Last Admin: 05/23/19 18:17 Dose: 4 mg Vital Signs - 8 hr 05/23/19 20:25 Pulse Rate 81 Respiratory Rate 18 Blood Pressure [Right Arm] 139/93 H Pulse Oximetry 98 MDM - Female Genitourinary <LISA Asencio- - Last Filed: 05/23/19 20:52> Lab Data Result diagrams: 05/23/19 18:13 05/23/19 18:13 Lab Results 05/23/19 05/23/19 05/23/19 Range/Units 17:50 18:13 18:13 WBC 14.4 H (4.5-11.0) X10^3/uL RBC 4.86 (4.0-5.2) X10^6/uL Hgb 14.8 (12.0-16.0) g/dL Hct 43.4 (36-46) % MCV 89.3 (80-100) fL MCH 30.5 (26-34) PG MCHC 34.2 (30-36) % RDW 12.5 (11.6-14.8) % Plt Count 412 H (150-400) X10^3/uL Neut % (Auto) 81.4 H (50-75) % Lymph % (Auto) 11.9 L (25-40) % Weld % (Auto) 5.9 (3-14) % Eos % (Auto) 0.4 L (2-4) % Baso % (Auto) 0.4 (0-2) % Neut # (Auto) 11002 H (7607-4967) /uL Lymph # (Auto) 1700 (4563-1785) /uL Weld # (Auto) 800 (0-900) /uL Eos # (Auto) 100 (0-450) /uL Baso # (Auto) 100 (0-100) /uL Sodium 138 (137-145) mmol/L Potassium 4.3 (3.4-5.1) mmol/L Chloride 102 (98-107) mmol/L Carbon Dioxide 26 (22-32) mmol/L BUN 10 (7-17) mg/dL Creatinine 0.90 (0.52-1.04) mg/dL Estimated GFR > 60.0 (>60) mL/min BUN/Creatinine Ratio 11.1 (6-22) Glucose 99 (70-100) mg/dL Calcium 9.4 (8.4-10.2) mg/dL Total Bilirubin 0.9 (0.2-1.3) mg/dL AST 62 H (14-36) IU/L ALT 85 H (9-52) IU/L Alkaline Phosphatase 93 (38-126) U/L Total Protein 7.9 (6.3-8.2) g/dL Albumin 4.5 (3.5-5.0) g/dL Globulin 3.4 (1.7-4.1) g/dL Albumin/Globulin Ratio 1.3 (1.0-2.8) Amylase 60 (30-110) U/L Lipase 41 (23-300) U/L Urine RBC 5-10/hpf H (0-5/HPF) Urine WBC None seen (0-5/HPF) Ur Squamous Epith Cells 1-5 /hpf (0-5/HPF) Amorphous Sediment 1+ Urine Bacteria Few (2-10) H (None) Ur Culture Indicated? Cult not indicated Point of Care Testing Test Results Negative Urine Dip Bedside Urine Glucose Negative Bedside Urine Bilirubin + 1 Bedside Urine Ketone +/- 5 Urine Specific [place] 1.030 Bedside Urine Occult Blood +++ Bedside Urine pH 6.0 Bedside Urine Protein + 30 Bedside Urine Urobilinogen +/- 1mg Bedside Urine Nitrite - Negative Bedside Urine Leukocytes - Negative Esterase MDM Narrative Medical decision making narrative: The patient is a 33-year-old female with history of kidney stones who presents with left-sided flank pain. She has a 6 mm stone at the UVJ on CT. There are no Bacteria or nitrites on her urinalysis at this point time, the urine cultures pending at this time. She also denies any symptoms of urinary tract infection and does not want antibiotics at this time, stating ?this usually happens. I discussed at length her pain control, nausea control, pushing fluids, straining her urine etc. Encouraged patient to follow up with PCP in the next few days. I gave her prescriptions of Von Ormy, Zofran and Flomax. Discussed coming back to the ER for any acute concerns such as inability keep down fluids. <Claire Peters MD - Last Filed: 05/24/19 03:48> Lab Data Lab Results 05/23/19 05/23/19 05/23/19 Range/Units 17:50 18:13 18:13 WBC 14.4 H (4.5-11.0) X10^3/uL RBC 4.86 (4.0-5.2) X10^6/uL Hgb 14.8 (12.0-16.0) g/dL Hct 43.4 (36-46) % MCV 89.3 (80-100) fL MCH 30.5 (26-34) PG MCHC 34.2 (30-36) % RDW 12.5 (11.6-14.8) % Plt Count 412 H (150-400) X10^3/uL Neut % (Auto) 81.4 H (50-75) % Lymph % (Auto) 11.9 L (25-40) % Weld % (Auto) 5.9 (3-14) % Eos % (Auto) 0.4 L (2-4) % Baso % (Auto) 0.4 (0-2) % Neut # (Auto) 79723 H (5021-5680) /uL Lymph # (Auto) 1700 (1828-5992) /uL Weld # (Auto) 800 (0-900) /uL Eos # (Auto) 100 (0-450) /uL Baso # (Auto) 100 (0-100) /uL Sodium 138 (137-145) mmol/L Potassium 4.3 (3.4-5.1) mmol/L Chloride 102 (98-107) mmol/L Carbon Dioxide 26 (22-32) mmol/L BUN 10 (7-17) mg/dL Creatinine 0.90 (0.52-1.04) mg/dL Estimated GFR > 60.0 (>60) mL/min BUN/Creatinine Ratio 11.1 (6-22) Glucose 99 (70-100) mg/dL Calcium 9.4 (8.4-10.2) mg/dL Total Bilirubin 0.9 (0.2-1.3) mg/dL AST 62 H (14-36) IU/L ALT 85 H (9-52) IU/L Alkaline Phosphatase 93 (38-126) U/L Total Protein 7.9 (6.3-8.2) g/dL Albumin 4.5 (3.5-5.0) g/dL Globulin 3.4 (1.7-4.1) g/dL Albumin/Globulin Ratio 1.3 (1.0-2.8) Amylase 60 (30-110) U/L Lipase 41 (23-300) U/L Urine RBC 5-10/hpf H (0-5/HPF) Urine WBC None seen (0-5/HPF) Ur Squamous Epith Cells 1-5 /hpf (0-5/HPF) Amorphous Sediment 1+ Urine Bacteria Few (2-10) H (None) Ur Culture Indicated? Cult not indicated Point of Care Testing Test Results Negative Urine Dip Bedside Urine Glucose Negative Bedside Urine Bilirubin + 1 Bedside Urine Ketone +/- 5 Urine Specific [place] 1.030 Bedside Urine Occult Blood +++ Bedside Urine pH 6.0 Bedside Urine Protein + 30 Bedside Urine Urobilinogen +/- 1mg Bedside Urine Nitrite - Negative Bedside Urine Leukocytes - Negative Esterase Discharge Plan Departure Patient Disposition: Home Clinical Impression: Left ureteral calculus Discharge Date/Time: 05/23/19 20:48 Interventions: ED Discharge Assessment Last Done: 05/23/19 20:47 Instructions: DI for Kidney Stones Activity Restrictions/Additional Instructions: You have a 6 mm kidney stone on the your left side. Home I have given you prescriptions for nausea. I have given you Von Ormy. This can be constipating and sedating. I have also given you a prescription of ketorolac, which is an anti-inflammatory. Do not combine this with ibuprofen Aleve or any other NSAIDs. Please push fluids. Please strain your urine. Please monitor for signs of infection. Urine culture is pending at this time. Please follow up with primary care provider in the next few days, especially if you do not passed her stone. You may need to follow up with Urology. Prescriptions: New hydrocodone-acetaminophen [Von [place]] 5-325 mg tablet 1 tab PO Q4-6H PRN (Reason: pain) Qty: 10 RF: 0 ketorolac 10 mg tablet 10 mg PO TID PRN (Reason: pain) Qty: 20 RF: 0 tamsulosin [Flomax] 0.4 mg capsule 0.4 mg PO DAILY Qty: 7 RF: 0 ondansetron 4 mg tablet,disintegrating 4 mg PO Q6H PRN (Reason: nausea and vomiting) Qty: 30 RF: 0 No Action acetaminophen [Tylenol Extra Strength] 500 mg tablet 500 mg PO Q6H PRNRF: 0 aerjxtu-dmtgqhtbdzdqk-enrkwhoq [Excedrin Migraine] 250-250-65 mg tablet 1 tab PO Q4-6H PRNRF: 0 tamsulosin 0.4 mg capsule 0.4 mg PO DAILY Qty: 14 RF: 0 meloxicam 15 mg tablet 15 mg PO DAILY Qty: 14 RF: 0 lidocaine [Lidoderm] 5 % adhesive patch,medicated 3 patch TOP DAILY Qty: 30 RF: 0 tizanidine 4 mg capsule 4 mg PO Q6-8H PRN (Reason: muscle spasticity) Qty: 10 RF: 0
--- NOTE | 2019-05-23 20:37 | ED_ITS ---
HPI - Female Genitourinary <AFBIAN Asencio - Last Filed: 05/23/19 20:52> General Chief complaint: Urogenital-Female Stated complaint: Kidney Stones Time Seen by Provider: 05/23/19 16:57 Source: patient Mode of arrival: ambulatory Limitations: no limitations History of Present Illness HPI Narrative: The patient is a 33-year-old female current smoker with history of kidney stones who presents with a chief complaint of left flank pain. She states it started 4:00 a.m.. She believes she has another kidney stone. She tried 2 doses of ibuprofen, was recently at 10:00 a.m.. She has been trying to push fluids, but the pain got so bad she vomited. She denies any dysuria urgency or frequency. She denies any vaginal symptoms. She denies any fevers. She denies any hematuria. Related Data Home Medications Medication Instructions Recorded Confirmed acetaminophen 500 mg tablet 500 mg PO Q6H PRN 07/27/18 07/27/18 [id number] 250 1 tab PO Q4-6H PRN 07/27/18 07/27/18 mg-250 mg-65 mg tablet Previous Rx's Medication Instructions Recorded lidocaine [Lidoderm] 3 patch TOP DAILY #30 each 12/18/18 meloxicam 15 mg PO DAILY #14 tab 12/18/18 tizanidine 4 mg PO Q6-8H PRN #10 cap 12/18/18 tamsulosin 0.4 mg capsule 0.4 mg PO DAILY #14 cap 03/09/19 hydrocodone-acetaminophen [[place]] 1 tab PO Q4-6H PRN #10 tab 05/23/19 ketorolac 10 mg PO TID PRN #20 tab 05/23/19 ondansetron 4 mg PO Q6H PRN #30 tab 05/23/19 tamsulosin [Flomax] 0.4 mg PO DAILY #7 cap 05/23/19 Allergies Allergy/AdvReac Type Severity Reaction Status Date / Time sulfamethoxazole Allergy Severe Seizures, Verified 03/28/19 21:39 [From Bactrim] rash, fever, swelling trimethoprim [From Bactrim] Allergy Severe Seizures, Verified 03/28/19 21:39 rash, fever, swelling Review of Systems <FABIAN Asencio - Last Filed: 05/23/19 20:52> Review of Systems GENERAL: Denies chills, fatigue, malaise, fever, sweats. HEENT: Denies sinus pain, ear pain, sore throat, difficulty swallowing, dizziness. RESPIRATORY: Denies dyspnea, cough, wheezing, hemoptysis, sputum. CARDIOVASCULAR: Denies chest pain, palpitations, orthopnea, edema, GASTROINTESTINAL: See HPI : See HPI MUSCULOSKELETAL: denies weakness, joint pain, or bony pain SKIN: Denies rash, skin lesions, or other NEUROLOGIC: Denies weakness, headache, numbness, change in speech, confusion, seizures, incoordination. PSYCHIATRIC: No concerning psychosocial issues. 12 point review of systems is negative except for those stated above PFSH <FABIAN Asencio - Last Filed: 05/23/19 20:52> Medical History Lumbar strain (Chronic) Nephrolithiasis (Chronic) Radicular pain of both lower extremities (Chronic) Surgical History History of lithotripsy (Resolved) Status post ORIF of fracture of ankle (Resolved) Social History Smoking Status: Never smoker Social History Smoking Status: Never smoker Exam <FABIAN Asencio - Last Filed: 05/23/19 20:52> Narrative Exam Narrative: GENERAL: This is a well-nourished, well-developed patient, in mild distress. HEAD: Atraumatic. Normocephalic. No temporal or scalp tenderness. EYES: Pupils equal round and reactive. Extraocular motions intact. No scleral icterus. No injection or drainage. ENT: Nose without bleeding, purulent drainage or septal hematoma. Throat without erythema, tonsillar hypertrophy or exudate. Uvula midline. Airway patent. NECK: Trachea midline. No JVD or lymphadenopathy. Supple, nontender, no meningeal signs. CARDIOVASCULAR: Regular rate and rhythm RESPIRATORY: Clear to auscultation. Breath sounds equal bilaterally. No wheezes, rales, or rhonchi. GASTROINTESTINAL: Abdomen soft, slight pain to palpation left lower quadrant., nondistended. No hepato-splenomegaly, or palpable masses. No guarding. Active bowel sounds all 4 quadrants. EXTREMITIES: No clubbing, cyanosis, or edema. No joint tenderness, effusion, or edema noted. BACK: Nontender without deformity or crepitance. CVA tenderness left side. NEURO: AOx3. SKIN: No rash or erythema. Initial Vital Signs Initial Vital Signs: Vital Signs Temperature 97.7 F 05/23/19 15:27 Pulse Rate 77 05/23/19 15:27 Respiratory Rate 20 05/23/19 15:27 Blood Pressure 148/93 H 05/23/19 15:27 Pulse Oximetry 98 05/23/19 15:27 <Claire Peters MD - Last Filed: 05/24/19 03:48> Initial Vital Signs Initial Vital Signs: Vital Signs Temperature 97.7 F 05/23/19 15:27 Pulse Rate 77 05/23/19 15:27 Respiratory Rate 20 05/23/19 15:27 Blood Pressure 148/93 H 05/23/19 15:27 Pulse Oximetry 98 05/23/19 15:27 Course <LISA Asencio-BC - Last Filed: 05/23/19 20:52> Orders Ordered: Discontinued Medications Hydrocodone Bitart/Acetaminophen ([place] 5/325) 2 tab PO NOW ONE Stop: 05/23/19 19:20 Last Admin: 05/23/19 19:34 Dose: 2 tab Hydromorphone HCl (Dilaudid) 0.5 mg IV NOW ONE Stop: 05/23/19 20:05 Last Admin: 05/23/19 20:24 Dose: 0.5 mg Sodium Chloride (Normal Saline 0.9%) 500 mls @ 1,000 mls/hr IV BOLUS ONE Stop: 05/23/19 17:45 Last Infusion: 05/23/19 19:30 Dose: 1,000 mls/hr Admin: 05/23/19 18:17 Dose: 1,000 mls/hr Ketorolac Tromethamine (Toradol) 30 mg IV NOW ONE Stop: 05/23/19 17:17 Last Admin: 05/23/19 18:17 Dose: 30 mg Morphine Sulfate (Morphine) 4 mg IV NOW ONE Stop: 05/23/19 18:56 Last Admin: 05/23/19 19:35 Dose: 4 mg Ondansetron HCl (Zofran) 4 mg IV NOW ONE Stop: 05/23/19 17:17 Last Admin: 05/23/19 18:17 Dose: 4 mg Vital Signs - 8 hr 05/23/19 20:25 Pulse Rate 81 Respiratory Rate 18 Blood Pressure [Right Arm] 139/93 H Pulse Oximetry 98 <Claire Peters MD - Last Filed: 05/24/19 03:48> Orders Ordered: Discontinued Medications Hydrocodone Bitart/Acetaminophen ([place] 5/325) 2 tab PO NOW ONE Stop: 05/23/19 19:20 Last Admin: 05/23/19 19:34 Dose: 2 tab Hydromorphone HCl (Dilaudid) 0.5 mg IV NOW ONE Stop: 05/23/19 20:05 Last Admin: 05/23/19 20:24 Dose: 0.5 mg Sodium Chloride (Normal Saline 0.9%) 500 mls @ 1,000 mls/hr IV BOLUS ONE Stop: 05/23/19 17:45 Last Infusion: 05/23/19 19:30 Dose: 1,000 mls/hr Admin: 05/23/19 18:17 Dose: 1,000 mls/hr Ketorolac Tromethamine (Toradol) 30 mg IV NOW ONE Stop: 05/23/19 17:17 Last Admin: 05/23/19 18:17 Dose: 30 mg Morphine Sulfate (Morphine) 4 mg IV NOW ONE Stop: 05/23/19 18:56 Last Admin: 05/23/19 19:35 Dose: 4 mg Ondansetron HCl (Zofran) 4 mg IV NOW ONE Stop: 05/23/19 17:17 Last Admin: 05/23/19 18:17 Dose: 4 mg Vital Signs - 8 hr 05/23/19 20:25 Pulse Rate 81 Respiratory Rate 18 Blood Pressure [Right Arm] 139/93 H Pulse Oximetry 98 MDM - Female Genitourinary <LISA Asencio- - Last Filed: 05/23/19 20:52> Lab Data Result diagrams: 05/23/19 18:13 05/23/19 18:13 Lab Results 05/23/19 05/23/19 05/23/19 Range/Units 17:50 18:13 18:13 WBC 14.4 H (4.5-11.0) X10^3/uL RBC 4.86 (4.0-5.2) X10^6/uL Hgb 14.8 (12.0-16.0) g/dL Hct 43.4 (36-46) % MCV 89.3 (80-100) fL MCH 30.5 (26-34) PG MCHC 34.2 (30-36) % RDW 12.5 (11.6-14.8) % Plt Count 412 H (150-400) X10^3/uL Neut % (Auto) 81.4 H (50-75) % Lymph % (Auto) 11.9 L (25-40) % [place] % (Auto) 5.9 (3-14) % Eos % (Auto) 0.4 L (2-4) % Baso % (Auto) 0.4 (0-2) % Neut # (Auto) 86557 H (8321-5473) /uL Lymph # (Auto) 1700 (5628-1851) /uL [place] # (Auto) 800 (0-900) /uL Eos # (Auto) 100 (0-450) /uL Baso # (Auto) 100 (0-100) /uL Sodium 138 (137-145) mmol/L Potassium 4.3 (3.4-5.1) mmol/L Chloride 102 (98-107) mmol/L Carbon Dioxide 26 (22-32) mmol/L BUN 10 (7-17) mg/dL Creatinine 0.90 (0.52-1.04) mg/dL Estimated GFR > 60.0 (>60) mL/min BUN/Creatinine Ratio 11.1 (6-22) Glucose 99 (70-100) mg/dL Calcium 9.4 (8.4-10.2) mg/dL Total Bilirubin 0.9 (0.2-1.3) mg/dL AST 62 H (14-36) IU/L ALT 85 H (9-52) IU/L Alkaline Phosphatase 93 (38-126) U/L Total Protein 7.9 (6.3-8.2) g/dL Albumin 4.5 (3.5-5.0) g/dL Globulin 3.4 (1.7-4.1) g/dL Albumin/Globulin Ratio 1.3 (1.0-2.8) Amylase 60 (30-110) U/L Lipase 41 (23-300) U/L Urine RBC 5-10/hpf H (0-5/HPF) Urine WBC None seen (0-5/HPF) Ur Squamous Epith Cells 1-5 /hpf (0-5/HPF) Amorphous Sediment 1+ Urine Bacteria Few (2-10) H (None) Ur Culture Indicated? Cult not indicated Point of Care Testing Test Results Negative Urine Dip Bedside Urine Glucose Negative Bedside Urine Bilirubin + 1 Bedside Urine Ketone +/- 5 Urine Specific [place] 1.030 Bedside Urine Occult Blood +++ Bedside Urine pH 6.0 Bedside Urine Protein + 30 Bedside Urine Urobilinogen +/- 1mg Bedside Urine Nitrite - Negative Bedside Urine Leukocytes - Negative Esterase MDM Narrative Medical decision making narrative: The patient is a 33-year-old female with history of kidney stones who presents with left-sided flank pain. She has a 6 mm stone at the UVJ on CT. There are no Bacteria or nitrites on her urinalysis at this point time, the urine cultures pending at this time. She also denies any symptoms of urinary tract infection and does not want antibiotics at this time, stating ?this usually happens. I discussed at length her pain control, nausea control, pushing fluids, straining her urine etc. Encouraged patient to follow up with PCP in the next few days. I gave her prescriptions of [place], Zofran and Flomax. Discussed coming back to the ER for any acute concerns such as inability keep down fluids. <Claire Peters MD - Last Filed: 05/24/19 03:48> Lab Data Lab Results 05/23/19 05/23/19 05/23/19 Range/Units 17:50 18:13 18:13 WBC 14.4 H (4.5-11.0) X10^3/uL RBC 4.86 (4.0-5.2) X10^6/uL Hgb 14.8 (12.0-16.0) g/dL Hct 43.4 (36-46) % MCV 89.3 (80-100) fL MCH 30.5 (26-34) PG MCHC 34.2 (30-36) % RDW 12.5 (11.6-14.8) % Plt Count 412 H (150-400) X10^3/uL Neut % (Auto) 81.4 H (50-75) % Lymph % (Auto) 11.9 L (25-40) % [place] % (Auto) 5.9 (3-14) % Eos % (Auto) 0.4 L (2-4) % Baso % (Auto) 0.4 (0-2) % Neut # (Auto) 72995 H (2778-2343) /uL Lymph # (Auto) 1700 (8601-2433) /uL [place] # (Auto) 800 (0-900) /uL Eos # (Auto) 100 (0-450) /uL Baso # (Auto) 100 (0-100) /uL Sodium 138 (137-145) mmol/L Potassium 4.3 (3.4-5.1) mmol/L Chloride 102 (98-107) mmol/L Carbon Dioxide 26 (22-32) mmol/L BUN 10 (7-17) mg/dL Creatinine 0.90 (0.52-1.04) mg/dL Estimated GFR > 60.0 (>60) mL/min BUN/Creatinine Ratio 11.1 (6-22) Glucose 99 (70-100) mg/dL Calcium 9.4 (8.4-10.2) mg/dL Total Bilirubin 0.9 (0.2-1.3) mg/dL AST 62 H (14-36) IU/L ALT 85 H (9-52) IU/L Alkaline Phosphatase 93 (38-126) U/L Total Protein 7.9 (6.3-8.2) g/dL Albumin 4.5 (3.5-5.0) g/dL Globulin 3.4 (1.7-4.1) g/dL Albumin/Globulin Ratio 1.3 (1.0-2.8) Amylase 60 (30-110) U/L Lipase 41 (23-300) U/L Urine RBC 5-10/hpf H (0-5/HPF) Urine WBC None seen (0-5/HPF) Ur Squamous Epith Cells 1-5 /hpf (0-5/HPF) Amorphous Sediment 1+ Urine Bacteria Few (2-10) H (None) Ur Culture Indicated? Cult not indicated Point of Care Testing Test Results Negative Urine Dip Bedside Urine Glucose Negative Bedside Urine Bilirubin + 1 Bedside Urine Ketone +/- 5 Urine Specific [place] 1.030 Bedside Urine Occult Blood +++ Bedside Urine pH 6.0 Bedside Urine Protein + 30 Bedside Urine Urobilinogen +/- 1mg Bedside Urine Nitrite - Negative Bedside Urine Leukocytes - Negative Esterase Discharge Plan Departure Patient Disposition: Home Clinical Impression: Left ureteral calculus Discharge Date/Time: 05/23/19 20:48 Interventions: ED Discharge Assessment Last Done: 05/23/19 20:47 Instructions: DI for Kidney Stones Activity Restrictions/Additional Instructions: You have a 6 mm kidney stone on the your left side. Home I have given you prescriptions for nausea. I have given you [place]. This can be constipating and sedating. I have also given you a prescription of ketorolac, which is an anti-inflammatory. Do not combine this with ibuprofen Aleve or any other NSAIDs. Please push fluids. Please strain your urine. Please monitor for signs of infection. Urine culture is pending at this time. Please follow up with primary care provider in the next few days, especially if you do not passed her stone. You may need to follow up with Urology. Prescriptions: New hydrocodone-acetaminophen [[place]] 5-325 mg tablet 1 tab PO Q4-6H PRN (Reason: pain) Qty: 10 RF: 0 ketorolac 10 mg tablet 10 mg PO TID PRN (Reason: pain) Qty: 20 RF: 0 tamsulosin [Flomax] 0.4 mg capsule 0.4 mg PO DAILY Qty: 7 RF: 0 ondansetron 4 mg tablet,disintegrating 4 mg PO Q6H PRN (Reason: nausea and vomiting) Qty: 30 RF: 0 No Action acetaminophen [Tylenol Extra Strength] 500 mg tablet 500 mg PO Q6H PRNRF: 0 [id number] [Excedrin Migraine] 250-250-65 mg tablet 1 tab PO Q4-6H PRNRF: 0 tamsulosin 0.4 mg capsule 0.4 mg PO DAILY Qty: 14 RF: 0 meloxicam 15 mg tablet 15 mg PO DAILY Qty: 14 RF: 0 lidocaine [Lidoderm] 5 % adhesive patch,medicated 3 patch TOP DAILY Qty: 30 RF: 0 tizanidine 4 mg capsule 4 mg PO Q6-8H PRN (Reason: muscle spasticity) Qty: 10 RF: 0
== END 2019-05-23 20:48 | disposition home or self-care (01) ==
PROVIDERS: Emergency Provider Nurse Practitioner Family
DX: N20.0 Calculus of kidney (principal)
CPT/HCPCS: 36591; 74176; 80053; 81003; 81015; 81025; 82150; 83690; 85025; 96361; 96374; 96375; 99283; 99284; J1170; J1885; J2270; J2405

== ENCOUNTER 2021-07-24 05:15 | Observation (INO) | payer OTHER, SELFPAY ==
[2021-07-24] VITALS (17 sets, daily range): BP systolic 85–179; BP diastolic 39–97; PULSE 18–87; RESP 12–18; TEMP 35.5–36.8; O2SAT 94–98; BMI 27.4
--- NOTE | 2021-07-24 | DI.RAD.S_ITS ---
PROCEDURE: XR ABDOMEN 1V INDICATIONS: STENT PLACEMENT TECHNIQUE: One view of the abdomen acquired. COMPARISON: None. FINDINGS: A single fluoroscopic image demonstrates the upper portion of a right ureteral stent. IMPRESSION: Placement of a right ureteral stent. Dictated by: Anibal Esparza M.D. on 07/24/2021 at 13:25 Approved by: Anibal Esparza M.D. on 07/24/2021 at 13:26
--- NOTE | 2021-07-24 05:22 | ED_ITS ---
HPI - Female Genitourinary <Silvia De La Cruz, - Last Filed: 07/25/21 06:43> General Chief complaint: Back Pain/Injury Stated complaint: kidney pain x8 hours Time Seen by Provider: 07/24/21 05:20 Source: patient Mode of arrival: Ambulatory Limitations: no limitations History of Present Illness HPI Narrative: This is a 35-year-old female who has had 8 hours of right flank pain that was sudden onset. Patient states pain radiates from the right flank towards the front. She has felt chilled and sweaty. She has had nausea and vomiting. Patient has had darkish urine almost bloody but no frequency, dysuria or sense of urgency. She has not had any vaginal bleeding or discharge. No issues with bowel movements. Patient does have a history of kidney stones and states this feels quite similar. She does note she was diagnosed with COVID a month ago she has continued to have nausea and vomiting since then but states that this nausea vomiting seems worsened by her right flank pain. Patient has had lithotripsy in the past x4. She has had a knee surgery. She denies any other intra-abdominal surgeries. She takes sertraline daily denies any other daily medications. No tobacco, occasional alcohol, occasional edibles but no other illicit. Related Data Home Medications Medication Instructions Recorded Confirmed acetaminophen 500 mg tablet 500 mg PO Q6H PRN 07/27/18 07/27/18 (Tylenol Extra Strength) [id number]-[id number] 250 1 tab PO Q4-6H PRN 07/27/18 07/27/18 mg-250 mg-65 mg tablet (Excedrin Migraine) Previous Rx's Medication Instructions Recorded lidocaine 5 % topical patch 3 patch TOP DAILY #30 each 12/18/18 (Lidoderm) meloxicam 15 mg tablet 15 mg PO DAILY #14 tab 12/18/18 tizanidine 4 mg capsule 4 mg PO Q6-8H PRN #10 cap 12/18/18 tamsulosin 0.4 mg capsule 0.4 mg PO DAILY #14 cap 03/09/19 hydrocodone 5 mg-acetaminophen 325 1 tab PO Q4-6H PRN #10 tab 05/23/19 mg tablet ([place]) ketorolac 10 mg tablet 10 mg PO TID PRN #20 tab 05/23/19 ondansetron 4 mg disintegrating 4 mg PO Q6H PRN #30 tab 05/23/19 tablet tamsulosin 0.4 mg capsule (Flomax) 0.4 mg PO DAILY #7 cap 05/23/19 ciprofloxacin HCl 500 mg tablet 500 mg PO Q12H #20 tab 07/24/21 oxycodone 5 mg tablet 5 mg PO Q4H PRN #10 tab 07/24/21 Allergies Allergy/AdvReac Type Severity Reaction Status Date / Time sulfamethoxazole Allergy Severe Seizures, Verified 06/20/21 13:44 [From Bactrim] rash, fever, swelling trimethoprim [From Bactrim] Allergy Severe Seizures, Verified 06/20/21 13:44 rash, fever, swelling Review of Systems <Silvia De La Cruz DO - Last Filed: 07/25/21 06:43> Review of Systems ROS Unobtainable: All systems reviewed & are unremarkable except as noted in HPI and below Patient History <Silvia De La Cruz DO - Last Filed: 07/25/21 06:43> Medical History Lumbar strain Nephrolithiasis Radicular pain of both lower extremities Surgical History History of lithotripsy Status post ORIF of fracture of ankle Substance Use Type: does not use Exam <Silvia De La Cruz DO - Last Filed: 07/25/21 06:43> Narrative Exam Narrative: GENERAL: Alert and oriented x three, female in moderate distress. HEENT: Head normocephalic, atraumatic, EOMI, pupils reactive, face symmetric, moist mucous membranes NECK: Supple, full range of motion CARDIOVASCULAR: Regular rate and rhythm without murmurs, rubs or gallops. RESPIRATORY: Breath sounds equal bilaterally, no wheezes rales or rhonchi. ABDOMEN: Soft, mild generalized tenderness. Nondistended. Hyperactive bowel sounds all 4 quadrants. No guarding or rebound, rigidity, no mass : No CVA tenderness bilaterally. EXTREMITIES: Normal range of motion, no clubbing or edema. Neurovascularly intact NEUROLOGICAL: Cranial nerves II through XII grossly intact. Moving all extremities SKIN: Warm, dry, no petechiae, no rashes or lesions. Initial Vital Signs Initial Vital Signs: Vital Signs Temperature 96 F L 07/24/21 05:23 Pulse Rate 72 07/24/21 05:23 Respiratory Rate 18 07/24/21 05:23 Blood Pressure 174/88 H 07/24/21 05:23 Pulse Oximetry 96 07/24/21 05:23 <Nori Miller MD - Last Filed: 07/24/21 09:36> Initial Vital Signs Initial Vital Signs: Vital Signs Temperature 96 F L 07/24/21 05:23 Pulse Rate 72 07/24/21 05:23 Respiratory Rate 18 07/24/21 05:23 Blood Pressure 174/88 H 07/24/21 05:23 Pulse Oximetry 96 07/24/21 05:23 Course <Silvia De La Cruz DO - Last Filed: 07/25/21 06:43> Orders Ordered: Discontinued Medications Hydrocodone Bitart/Acetaminophen (Hydrocodone/Acet 5/325 Tablet) 1 tab PO PACUNOW PRN PRN Reason: Mild or moderate pain Last Admin: 07/24/21 15:12 Dose: 1 tab Documented by: Admin: 07/24/21 13:34 Dose: 1 tab Documented by: RAMY Fentanyl (Fentanyl 100 Mcg/2 Ml Inj) 0 mcg IV Q5M PRN PRN Reason: Pain, Moderate (4-6) Hydromorphone HCl (Hydromorphone 0.5 Mg Inj) 0.5 mg IV NOW ONE Stop: 07/24/21 06:40 Last Admin: 07/24/21 06:44 Dose: 0.5 mg Documented by: CATHY Hydromorphone HCl (Hydromorphone 0.5 Mg Inj) 0.5 mg IV Q15MIN PRN PRN Reason: Pain, Last Admin: 07/24/21 09:08 Dose: 0.5 mg Documented by: BERYL Hydromorphone HCl (Hydromorphone 2 Mg Inj) 0 mg IV Q5M PRN PRN Reason: Pain, Severe (7-10) Sodium Chloride (Normal Saline 0.9%) 1,000 mls @ 1,000 mls/hr IV BOLUS ONE Stop: 07/24/21 06:28 Last Infusion: 07/24/21 07:12 Dose: 0 mls/hr Documented by: Admin: 07/24/21 05:40 Dose: 1,000 mls/hr Documented by: CATHY Sodium Chloride (Normal Saline 0.9%) 1,000 mls @ 1,000 mls/hr IV BOLUS ONE Stop: 07/24/21 09:38 Last Infusion: 07/24/21 10:08 Dose: 0 mls/hr Documented by: Admin: 07/24/21 09:08 Dose: 1,000 mls/hr Documented by: BERYL Ceftriaxone Sodium 2,000 mg/ (Sodium Chloride) 100 mls @ 200 mls/hr IV NOW ONE Stop: 07/24/21 08:40 Last Infusion: 07/24/21 09:44 Dose: 0 mls/hr Documented by: Admin: 07/24/21 09:08 Dose: 200 mls/hr Documented by: BERYL Lactated Ringer's (Lactated Ringers) 1,000 mls @ 42 mls/hr IV NOW ONE Stop: 07/25/21 11:17 Last Admin: 07/24/21 11:29 Dose: 42 mls/hr Documented by: BRENDA Ketorolac Tromethamine (Ketorolac 30 Mg/Ml Vial) 15 mg IV NOW ONE Stop: 07/24/21 05:30 Last Admin: 07/24/21 05:30 Dose: 15 mg Documented by: CATHY Meperidine HCl (Meperidine 50 Mg/Ml Inj) 50 mg IV NOW ONE Stop: 07/24/21 13:48 Last Admin: 07/24/21 13:59 Dose: 25 mg Documented by: AMINAI Metoclopramide HCl (Metoclopramide 10 Mg/2 Ml Inj) 10 mg IV NOW PRN PRN Reason: Nausea And Vomiting Ondansetron HCl (Ondansetron 4 Mg/2 Ml Inj) 4 mg IV NOW ONE Stop: 07/24/21 05:30 Last Admin: 07/24/21 05:40 Dose: 4 mg Documented by: CATHY Ondansetron HCl (Ondansetron 4 Mg/2 Ml Inj) 4 mg IV NOW PRN PRN Reason: Nausea And Vomiting Tamsulosin HCl (Tamsulosin 0.4 Mg Capsule) 0.4 mg PO NOW ONE Stop: 07/24/21 06:19 Last Admin: 07/24/21 06:25 Dose: 0.4 mg Documented by: CATHY Vital Signs Vital signs: Vital Signs - 8 hr 07/24/21 05:23 07/24/21 06:51 07/24/21 07:49 Temperature 96 F L Pulse Rate 72 76 18 L Respiratory Rate 18 18 18 Blood Pressure 174/88 H 179/79 H 157/97 H Pulse Oximetry 96 98 97 <Nori Miller MD - Last Filed: 07/24/21 09:36> Orders Ordered: Discontinued Medications Hydrocodone Bitart/Acetaminophen (Hydrocodone/Acet 5/325 Tablet) 1 tab PO PACUNOW PRN PRN Reason: Mild or moderate pain Last Admin: 07/24/21 15:12 Dose: 1 tab Documented by: Admin: 07/24/21 13:34 Dose: 1 tab Documented by: RAMY Fentanyl (Fentanyl 100 Mcg/2 Ml Inj) 0 mcg IV Q5M PRN PRN Reason: Pain, Moderate (4-6) Hydromorphone HCl (Hydromorphone 0.5 Mg Inj) 0.5 mg IV NOW ONE Stop: 07/24/21 06:40 Last Admin: 07/24/21 06:44 Dose: 0.5 mg Documented by: CATHY Hydromorphone HCl (Hydromorphone 0.5 Mg Inj) 0.5 mg IV Q15MIN PRN PRN Reason: Pain, Last Admin: 07/24/21 09:08 Dose: 0.5 mg Documented by: BERYL Hydromorphone HCl (Hydromorphone 2 Mg Inj) 0 mg IV Q5M PRN PRN Reason: Pain, Severe (7-10) Sodium Chloride (Normal Saline 0.9%) 1,000 mls @ 1,000 mls/hr IV BOLUS ONE Stop: 07/24/21 06:28 Last Infusion: 07/24/21 07:12 Dose: 0 mls/hr Documented by: Admin: 07/24/21 05:40 Dose: 1,000 mls/hr Documented by: CATHY Sodium Chloride (Normal Saline 0.9%) 1,000 mls @ 1,000 mls/hr IV BOLUS ONE Stop: 07/24/21 09:38 Last Infusion: 07/24/21 10:08 Dose: 0 mls/hr Documented by: Admin: 07/24/21 09:08 Dose: 1,000 mls/hr Documented by: BERYL Ceftriaxone Sodium 2,000 mg/ (Sodium Chloride) 100 mls @ 200 mls/hr IV NOW ONE Stop: 07/24/21 08:40 Last Infusion: 07/24/21 09:44 Dose: 0 mls/hr Documented by: Admin: 07/24/21 09:08 Dose: 200 mls/hr Documented by: BERYL Lactated Ringer's (Lactated Ringers) 1,000 mls @ 42 mls/hr IV NOW ONE Stop: 07/25/21 11:17 Last Admin: 07/24/21 11:29 Dose: 42 mls/hr Documented by: BRENDA Ketorolac Tromethamine (Ketorolac 30 Mg/Ml Vial) 15 mg IV NOW ONE Stop: 07/24/21 05:30 Last Admin: 07/24/21 05:30 Dose: 15 mg Documented by: CATHY Meperidine HCl (Meperidine 50 Mg/Ml Inj) 50 mg IV NOW ONE Stop: 07/24/21 13:48 Last Admin: 07/24/21 13:59 Dose: 25 mg Documented by: RAMY Metoclopramide HCl (Metoclopramide 10 Mg/2 Ml Inj) 10 mg IV NOW PRN PRN Reason: Nausea And Vomiting Ondansetron HCl (Ondansetron 4 Mg/2 Ml Inj) 4 mg IV NOW ONE Stop: 07/24/21 05:30 Last Admin: 07/24/21 05:40 Dose: 4 mg Documented by: CATHY Ondansetron HCl (Ondansetron 4 Mg/2 Ml Inj) 4 mg IV NOW PRN PRN Reason: Nausea And Vomiting Tamsulosin HCl (Tamsulosin 0.4 Mg Capsule) 0.4 mg PO NOW ONE Stop: 07/24/21 06:19 Last Admin: 07/24/21 06:25 Dose: 0.4 mg Documented by: CATHY Vital Signs Vital signs: Vital Signs - 8 hr 07/24/21 05:23 07/24/21 06:51 07/24/21 07:49 Temperature 96 F L Pulse Rate 72 76 18 L Respiratory Rate 18 18 18 Blood Pressure 174/88 H 179/79 H 157/97 H Pulse Oximetry 96 98 97 MDM - Female Genitourinary <Silvia De La Cruz, - Last Filed: 07/25/21 06:43> Lab Data Result diagrams: 07/24/21 05:35 07/24/21 05:35 Labs: Lab Results 07/24/21 07/24/21 07/24/21 Range/Units 05:35 05:35 06:36 WBC 14.0 H (4.5-11.0) X10^3/uL RBC 4.85 (4.0-5.2) X10^6/uL Hgb 14.3 (12.0-16.0) g/dL Hct 42.7 (36-46) % MCV 88.1 (80-100) fL MCH 29.6 (26-34) PG MCHC 33.6 (30-36) % RDW 13.3 (11.6-14.8) % Plt Count 393 (150-400) X10^3/uL Neut % (Auto) 77.5 H (50-75) % Lymph % (Auto) 13.0 L (25-40) % [place] % (Auto) 8.4 (3-14) % Eos % (Auto) 0.6 L (2-4) % Baso % (Auto) 0.5 (0-2) % Neut # (Auto) 08261 H (8078-4299) /uL Lymph # (Auto) 1800 (2553-1878) /uL [place] # (Auto) 1200 H (0-900) /uL Eos # (Auto) 100 (0-450) /uL Baso # (Auto) 100 (0-100) /uL Sodium 137 (137-145) mmol/L Potassium 4.1 (3.4-5.1) mmol/L Chloride 104 (98-107) mmol/L Carbon Dioxide 20 L (22-32) mmol/L BUN 11 (7-17) mg/dL Creatinine 0.69 (0.52-1.04) mg/dL Estimated GFR > 60.0 (>60) mL/min BUN/Creatinine Ratio 15.9 (6-22) Glucose 119 H (70-100) mg/dL Calcium 9.4 (8.4-10.2) mg/dL Total Bilirubin 0.8 (0.2-1.3) mg/dL AST 28 (14-36) IU/L ALT 30 (<35) IU/L Alkaline Phosphatase 73 (38-126) U/L Total Protein 8.0 (6.3-8.2) g/dL Albumin 4.8 (3.5-5.0) g/dL Globulin 3.2 (1.7-4.1) g/dL Albumin/Globulin Ratio 1.5 (1.0-2.8) Lipase 105 (23-300) U/L Urine Color Brown Urine Appearance Cloudy Urine pH 5.0 (4.5-8.0) Ur Specific [place] >=1.030 H (1.000-1.035) Urine Protein 3+ H (Negative) Urine Glucose (UA) Trace H (Negative) g/dL Urine Ketones 1+ H (NEGATIVE) Urine Occult Blood 3+ H (Negative) Urine Nitrate Negative (Negative) Urine Bilirubin 1+ H (NEGATIVE) Ur Bilirubin Confirm Positive H (Negative) Urine Urobilinogen 0.2 (0.2) E.U./dL Ur Leukocyte Esterase Trace H (NEGATIVE) Urine RBC >100/hpf H (0-5/HPF) Urine WBC 0-1/hpf (0-5/HPF) Ur Squamous Epith Cells 5-10 /hpf H (0-5/HPF) Amorphous Sediment 2+ Urine Bacteria Many (>30) H (None) Ur Culture Indicated? Cult not indicated SARS-CoV-2 (PCR) (Negative) 07/24/21 Range/Units 10:10 WBC (4.5-11.0) X10^3/uL RBC (4.0-5.2) X10^6/uL Hgb (12.0-16.0) g/dL Hct (36-46) % MCV (80-100) fL MCH (26-34) PG MCHC (30-36) % RDW (11.6-14.8) % Plt Count (150-400) X10^3/uL Neut % (Auto) (50-75) % Lymph % (Auto) (25-40) % [place] % (Auto) (3-14) % Eos % (Auto) (2-4) % Baso % (Auto) (0-2) % Neut # (Auto) (4156-0930) /uL Lymph # (Auto) (9038-2996) /uL [place] # (Auto) (0-900) /uL Eos # (Auto) (0-450) /uL Baso # (Auto) (0-100) /uL Sodium (137-145) mmol/L Potassium (3.4-5.1) mmol/L Chloride (98-107) mmol/L Carbon Dioxide (22-32) mmol/L BUN (7-17) mg/dL Creatinine (0.52-1.04) mg/dL Estimated GFR (>60) mL/min BUN/Creatinine Ratio (6-22) Glucose (70-100) mg/dL Calcium (8.4-10.2) mg/dL Total Bilirubin (0.2-1.3) mg/dL AST (14-36) IU/L ALT (<35) IU/L Alkaline Phosphatase (38-126) U/L Total Protein (6.3-8.2) g/dL Albumin (3.5-5.0) g/dL Globulin (1.7-4.1) g/dL Albumin/Globulin Ratio (1.0-2.8) Lipase (23-300) U/L Urine Color Urine Appearance Urine pH (4.5-8.0) Ur Specific [place] (1.000-1.035) Urine Protein (Negative) Urine Glucose (UA) (Negative) g/dL Urine Ketones (NEGATIVE) Urine Occult Blood (Negative) Urine Nitrate (Negative) Urine Bilirubin (NEGATIVE) Ur Bilirubin Confirm (Negative) Urine Urobilinogen (0.2) E.U./dL Ur Leukocyte Esterase (NEGATIVE) Urine RBC (0-5/HPF) Urine WBC (0-5/HPF) Ur Squamous Epith Cells (0-5/HPF) Amorphous Sediment Urine Bacteria (None) Ur Culture Indicated? SARS-CoV-2 (PCR) Negative (Negative) Point of Care Testing Test Results Negative Imaging Data CT scan - abdomen/pelvis: Radiologist's Impression: mild right sided hydronephrosis with an 8x7mm calculus at the UPJ. Additional punctate nonobstructing calculi bilaterally. IUD present. MDM Narrative Medical decision making narrative: Patient has an 8 mm kidney stone on the right which is been present for approximately 8 hours with no acute creatinine changes. Patient's pain improved significantly with medications. She has had multiple episodes of intervention her primary urologist is at [facility] but she has also been seen at [facility]. Urine shows blood trace leukocyte esterase some squamous epithelial cells many bacteria. Patient does not appear to be obstructed. Pain was improved here in the department. Patient has seen Urology at [facility] and [facility] and had multiple lithotripsies and ureteral stents. Urology was paged and patient was signed out to Dr. Miller while awaiting call back for final decision about disposition whether patient would be candidate for intervention today. [phone] Patient is re-examined. 35-year-old woman with multiple kidney stones with 16 prior episodes of lithotripsy 1 stent placed who presents with right flank pain, 48 hours of low-grade fevers and increasing malaise found to have an 8 mm obstructing stone on the right with some perinephric stranding appreciated around the right kidney and mild right hydronephrosis. Pain is moderately controlled at this time, nausea is definitely controlled. White count is elevated at 14, with 48 hours of low-grade fevers general malaise and obstruction will start her on ceftriaxone. She has had interactions with multiple urologists but does not have 1 that she identifies as a primary. Would prefer to be referred to the closest 1 available. Will discuss care with Dr. Park. [phone] Nicole. Will keep her NPO. He will review further. Anticipate stent placement with d/c home after. <Nori Miller MD - Last Filed: 07/24/21 09:36> Lab Data Labs: Lab Results 07/24/21 07/24/21 07/24/21 Range/Units 05:35 05:35 06:36 WBC 14.0 H (4.5-11.0) X10^3/uL RBC 4.85 (4.0-5.2) X10^6/uL Hgb 14.3 (12.0-16.0) g/dL Hct 42.7 (36-46) % MCV 88.1 (80-100) fL MCH 29.6 (26-34) PG MCHC 33.6 (30-36) % RDW 13.3 (11.6-14.8) % Plt Count 393 (150-400) X10^3/uL Neut % (Auto) 77.5 H (50-75) % Lymph % (Auto) 13.0 L (25-40) % [place] % (Auto) 8.4 (3-14) % Eos % (Auto) 0.6 L (2-4) % Baso % (Auto) 0.5 (0-2) % Neut # (Auto) 84599 H (5771-1905) /uL Lymph # (Auto) 1800 (0955-0657) /uL [place] # (Auto) 1200 H (0-900) /uL Eos # (Auto) 100 (0-450) /uL Baso # (Auto) 100 (0-100) /uL Sodium 137 (137-145) mmol/L Potassium 4.1 (3.4-5.1) mmol/L Chloride 104 (98-107) mmol/L Carbon Dioxide 20 L (22-32) mmol/L BUN 11 (7-17) mg/dL Creatinine 0.69 (0.52-1.04) mg/dL Estimated GFR > 60.0 (>60) mL/min BUN/Creatinine Ratio 15.9 (6-22) Glucose 119 H (70-100) mg/dL Calcium 9.4 (8.4-10.2) mg/dL Total Bilirubin 0.8 (0.2-1.3) mg/dL AST 28 (14-36) IU/L ALT 30 (<35) IU/L Alkaline Phosphatase 73 (38-126) U/L Total Protein 8.0 (6.3-8.2) g/dL Albumin 4.8 (3.5-5.0) g/dL Globulin 3.2 (1.7-4.1) g/dL Albumin/Globulin Ratio 1.5 (1.0-2.8) Lipase 105 (23-300) U/L Urine Color Brown Urine Appearance Cloudy Urine pH 5.0 (4.5-8.0) Ur Specific [place] >=1.030 H (1.000-1.035) Urine Protein 3+ H (Negative) Urine Glucose (UA) Trace H (Negative) g/dL Urine Ketones 1+ H (NEGATIVE) Urine Occult Blood 3+ H (Negative) Urine Nitrate Negative (Negative) Urine Bilirubin 1+ H (NEGATIVE) Ur Bilirubin Confirm Positive H (Negative) Urine Urobilinogen 0.2 (0.2) E.U./dL Ur Leukocyte Esterase Trace H (NEGATIVE) Urine RBC >100/hpf H (0-5/HPF) Urine WBC 0-1/hpf (0-5/HPF) Ur Squamous Epith Cells 5-10 /hpf H (0-5/HPF) Amorphous Sediment 2+ Urine Bacteria Many (>30) H (None) Ur Culture Indicated? Cult not indicated SARS-CoV-2 (PCR) (Negative) 07/24/21 Range/Units 10:10 WBC (4.5-11.0) X10^3/uL RBC (4.0-5.2) X10^6/uL Hgb (12.0-16.0) g/dL Hct (36-46) % MCV (80-100) fL MCH (26-34) PG MCHC (30-36) % RDW (11.6-14.8) % Plt Count (150-400) X10^3/uL Neut % (Auto) (50-75) % Lymph % (Auto) (25-40) % [place] % (Auto) (3-14) % Eos % (Auto) (2-4) % Baso % (Auto) (0-2) % Neut # (Auto) (8462-1404) /uL Lymph # (Auto) (8932-6987) /uL [place] # (Auto) (0-900) /uL Eos # (Auto) (0-450) /uL Baso # (Auto) (0-100) /uL Sodium (137-145) mmol/L Potassium (3.4-5.1) mmol/L Chloride (98-107) mmol/L Carbon Dioxide (22-32) mmol/L BUN (7-17) mg/dL Creatinine (0.52-1.04) mg/dL Estimated GFR (>60) mL/min BUN/Creatinine Ratio (6-22) Glucose (70-100) mg/dL Calcium (8.4-10.2) mg/dL Total Bilirubin (0.2-1.3) mg/dL AST (14-36) IU/L ALT (<35) IU/L Alkaline Phosphatase (38-126) U/L Total Protein (6.3-8.2) g/dL Albumin (3.5-5.0) g/dL Globulin (1.7-4.1) g/dL Albumin/Globulin Ratio (1.0-2.8) Lipase (23-300) U/L Urine Color Urine Appearance Urine pH (4.5-8.0) Ur Specific [place] (1.000-1.035) Urine Protein (Negative) Urine Glucose (UA) (Negative) g/dL Urine Ketones (NEGATIVE) Urine Occult Blood (Negative) Urine Nitrate (Negative) Urine Bilirubin (NEGATIVE) Ur Bilirubin Confirm (Negative) Urine Urobilinogen (0.2) E.U./dL Ur Leukocyte Esterase (NEGATIVE) Urine RBC (0-5/HPF) Urine WBC (0-5/HPF) Ur Squamous Epith Cells (0-5/HPF) Amorphous Sediment Urine Bacteria (None) Ur Culture Indicated? SARS-CoV-2 (PCR) Negative (Negative) Point of Care Testing Test Results Negative MDM Narrative Medical decision making narrative: Patient has an 8 mm kidney stone on the right which is been present for approximately 8 hours with no acute creatinine changes. Patient's pain improved significantly with medications. She has had multiple episodes of intervention her primary urologist is at [facility] it but she has also been seen at [facility]. Urine shows blood trace leukocyte esterase some squamous epithelial cells many bacteria. [phone] Patient is re-examined. 35-year-old woman with multiple kidney stones with 16 p rior episodes of lithotripsy 1 stent placed who presents with right flank pain, 48 hours of low-grade fevers and increasing malaise found to have an 8 mm obstructing stone on the right with some perinephric stranding appreciated around the right kidney and mild right hydronephrosis. Pain is moderately controlled at this time, nausea is definitely controlled. White count is elevated at 14, with 48 hours of low-grade fevers general malaise and obstruction will start her on ceftriaxone. She has had interactions with multiple urologists but does not have 1 that she identifies as a primary. Would prefer to be referred to the closest 1 available. Will discuss care with Dr. Park. [phone] Nicole. Will keep her NPO. He will review further. Anticipate stent placement with d/c home after. Discharge Plan Departure Patient Disposition: Admitted to Surgery Clinical Impression: Kidney stone Admit Date/Time: 07/24/21 10:49 Admit Provider: Melody Park
--- NOTE | 2021-07-24 05:29 | DI.CT.S_ITS ---
PROCEDURE: CT ABDOMEN PELVIS WO CON INDICATIONS: right flank pain, right lower quadrant pain, history of stones TECHNIQUE: Axial sections were acquired from the lung bases to the pubic symphysis. Coronal and sagittal reformats were performed. For radiation dose reduction, the following was used: automated exposure control, adjustment of mA and/or kV according to patient size. COMPARISON: [facility], CT, CT KIDNEY URETER BLADDER (KUB), 05/23/2019, 18:38. FINDINGS: Image quality: Excellent. Lung bases: Unremarkable. Heart: No significant findings. URINARY: Right Kidney: There is an obstructing stone at the ureteropelvic junction measuring up to 8 mm with attenuation values of approximately 7751-0791 Hounsfield units. There is associated mild to moderate right hydronephrosis with perinephric stranding. There are few, approximately 5, additional punctate nonobstructing right renal stones. Right Ureter: No hydroureter distal to the stone. Left Kidney: There are few punctate indistinct nonobstructing left renal stones. No left hydronephrosis. Left Ureter: No hydroureter. Bladder: The bladder is nondistended. No stones. ABDOMEN: Liver: There is mild focal fatty infiltration along the anterior left hepatic lobe. Gallbladder: Unremarkable. Biliary ducts: Unremarkable. Pancreas: Unremarkable. Spleen: Unremarkable. Adrenal Glands: Unremarkable. Stomach and Bowel: Stomach, small bowel loops, and colon are normal in caliber and wall thickness. The appendix is normal in appearance. There is colonic diverticulosis without acute diverticulitis. Peritoneum: No abnormal intraperitoneal fluid. No free air. Ventral Wall: No hernia. Abdominal Nodes: No enlarged retroperitoneal or mesenteric lymph nodes. Vessels: Aorta and inferior vena cava are normal in size. PELVIS: Pelvic Organs: An IUD appears in appropriate position within the uterus. Pelvic Nodes: Unremarkable. Miscellaneous: No inguinal hernias are seen. Bones: There is an inferior endplate Schmorl's node in the L4 vertebral body. Associated degenerative disc disease with reactive endplate sclerosis demonstrated at L4-5. IMPRESSION: 1. Obstructing urinary stone measuring up to 8 mm at the right UPJ with associated mild to moderate hydronephrosis. 2. Multiple additional punctate nonobstructing renal stones demonstrated bilaterally. Concordant with preliminary interpretation. Dictated by: Harjinder Adorno M.D. on 07/24/2021 at 7:56 Approved by: Harjinder Adorno M.D. on 07/24/2021 at 8:07
[2021-07-24] MEDS: KETOROLAC 30 MG/ML VIAL 15 MG IV (05:30)
[2021-07-24] MEDS: ONDANSETRON 4 MG/2 ML INJ IV (05:40)
[2021-07-24] MEDS: SODIUM CHLORIDE 0.9% 1,000 ML 1000 ML IV ×2 (05:40→09:08)
[2021-07-24 05:46] LABS: Add Manual Diff / Slide Review NO; Basophils Absolute Auto 100 /uL (0-100); Basophils Percent Auto 0.5 % (0-2); Eosinophils Absolute Auto 100 /uL (0-450); Eosinophils Percent Auto 0.6 % (2-4); Hematocrit 42.7 % (36-46); Hemoglobin 14.3 g/dL (12.0-16.0); Lymphocytes Absolute Auto 1800 /uL (1100-4500); Mean Corpuscular HGB Conc 33.6 % (30-36); Mean Corpuscular Hemoglobin 29.6 PG (26-34); Mean Corpuscular Volume 88.1 fL (80-100); Monocytes Absolute Auto 1200 /uL (0-900); Monocytes Percent Auto 8.4 % (3-14); Neutrophils Absolute Auto 10900 /uL (1500-7000); Neutrophils Percent Auto 77.5 % (50-75); Platelet Count 393 X10^3/uL (150-400); Red Blood Cell Count 4.85 X10^6/uL (4.0-5.2); Red Cell Distribution Width 13.3 % (11.6-14.8)
[2021-07-24 05:54] LABS: Alanine Aminotransferase 30 IU/L (<35); Albumin 4.8 g/dL (3.5-5.0); Albumin Globulin Ratio 1.5 (1.0-2.8); Alkaline Phosphatase 73 U/L (38-126); Aspartate Aminotransferase 28 IU/L (14-36); BUN Creatinine Ratio 15.9 (6-22); Bilirubin Total 0.8 mg/dL (0.2-1.3); Blood Urea Nitrogen 11 mg/dL (7-17); Calcium 9.4 mg/dL (8.4-10.2); Carbon Dioxide 20 mmol/L (22-32); Chloride 104 mmol/L (98-107); Estimated Glomerular Filt Rate > 60.0 mL/min (>60); Globulin 3.2 g/dL (1.7-4.1); Glucose 119 mg/dL (70-100); HEMOLYSIS < 15 (0-50); Lipase 105 U/L (23-300); Potassium 4.1 mmol/L (3.4-5.1); Sodium 137 mmol/L (137-145)
[2021-07-24] MEDS: TAMSULOSIN 0.4 MG CAPSULE PO (06:25)
[2021-07-24 06:43] LABS: Appearance Urine UA CLOUDY; Glucose Urine UA TRACE g/dL (Negative); Ketones Urine UA 1+ (NEGATIVE); Leukocyte Esterase Urine UA TRACE (NEGATIVE); Nitrite Urine UA NEGATIVE (Negative); Occult Blood Urine UA 3+ (Negative); Protein Urine UA 3+ (Negative); Specific Gravity Urine UA >=1.030 (1.000-1.035); Urobilinogen Urine UA 0.2 E.U./dL (0.2)
[2021-07-24 06:44] LABS: Color Urine UA BROWN
[2021-07-24] MEDS: HYDROMORPHONE 0.5 MG INJ IV ×2 (06:44→09:08)
[2021-07-24 06:55] LABS: Amorphous Sediment Urine 2+; Bacteria Urine Many (>30); RBC Urine >100/HPF (0-5/HPF); Squamous Epithelial Cell Urine 5-10 /HPF (0-5/HPF); WBC Urine 0-1/HPF (0-5/HPF)
[2021-07-24 06:56] LABS: Bilirubin Urine UA 1+ (NEGATIVE); Culture Indicated Urine Cult Not Indicated; Ictotest Urine Positive (Negative)
[2021-07-24] MEDS: cefTRIAXone 2,000 MG in SODIUM CHLORIDE 0.9% 100 ML 200 ML IV (09:08)
[2021-07-24 10:28] LABS: COVID19 -Nasal RAPID Negative (Negative)
--- NOTE | 2021-07-24 11:11 | PM.HP.1 ---
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 He has also had sweats and chills. has a history of multiple previous urinary tract stones and interventions for same, including for lithotripsies. She has passed numerous other stones. CT KUB 07/24/2021 identifies an 8 mm right ureteropelvic junction calculus measuring 1200+ HU. There are multiple other nonobstructing bilateral punctate calculi in the kidneys. An IUD is positioned within the uterus. Urinalysis is consistent/suspicious for UTI. She received 1 g of ceftriaxone in the ED. Patient History Medical History Lumbar strain Nephrolithiasis Radicular pain of both lower extremities Surgical History History of lithotripsy Status post ORIF of fracture of ankle Family & Social History Safety & Behavioral: Feels Safe in Current Yes Environment Tobacco & Substance use: Smoking Status Never smoker Substance Use Type does not use Meds Home Medications and Allergies Home Medications Medication Instructions Recorded Confirmed Type acetaminophen 500 mg tablet 500 mg PO Q6H PRN 07/27/18 07/27/18 History (Tylenol Extra Strength) [id number] 250 1 tab PO Q4-6H PRN 07/27/18 07/27/18 History mg-250 mg-65 mg tablet (Excedrin Migraine) lidocaine 5 % topical patch 3 patch TOP DAILY #30 each 12/18/18 Rx (Lidoderm) meloxicam 15 mg tablet 15 mg PO DAILY #14 tab 12/18/18 Rx tizanidine 4 mg capsule 4 mg PO Q6-8H PRN #10 cap 12/18/18 Rx tamsulosin 0.4 mg capsule 0.4 mg PO DAILY #14 cap 03/09/19 Rx hydrocodone 5 mg-acetaminophen 325 1 tab PO Q4-6H PRN #10 tab 05/23/19 Rx mg tablet ([place]) ketorolac 10 mg tablet 10 mg PO TID PRN #20 tab 05/23/19 Rx ondansetron 4 mg disintegrating 4 mg PO Q6H PRN #30 tab 05/23/19 Rx tablet tamsulosin 0.4 mg capsule (Flomax) 0.4 mg PO DAILY #7 cap 05/23/19 Rx Allergies Allergy/AdvReac Type Severity Reaction Status Date / Time sulfamethoxazole Allergy Severe Seizures, Verified 06/20/21 13:44 [From Bactrim] rash, fever, swelling trimethoprim [From Bactrim] Allergy Severe Seizures, Verified 06/20/21 13:44 rash, fever, swelling Review of Systems Review of Systems ROS: Yes All systems reviewed with the patient and are negative except as otherwise documented Exam Vital Signs (past 8 hours): - 07/24/21 05:23 07/24/21 06:51 07/24/21 07:49 Temperature 96 F L Pulse Rate 72 76 18 L Respiratory Rate 18 18 18 Blood Pressure 174/88 H 179/79 H 157/97 H Pulse Oximetry 96 98 97 07/24/21 10:35 Temperature Pulse Rate 71 Respiratory Rate 18 Blood Pressure 118/58 L Pulse Oximetry 98 Oxygen Delivery Method Room Air Narrative Exam Narrative: She is a well-developed and well-nourished female in no pain distress but is intermittently shaking and chattering of teeth. Head/neck-sclera clear and pupils are round and equal bilaterally. No adenopathy or JVD visible. Chest-equal, clear, and unlabored expansion bilaterally. Heart-regular rhythm and rate. Objective Labs Result Diagrams: 07/24/21 05:35 07/24/21 05:35 Labs: Laboratory Results - last 24 hr 07/24/21 07/24/21 07/24/21 05:35 05:35 06:36 WBC 14.0 H RBC 4.85 Hgb 14.3 Hct 42.7 MCV 88.1 MCH 29.6 MCHC 33.6 RDW 13.3 Plt Count 393 Neut % (Auto) 77.5 H Lymph % (Auto) 13.0 L [place] % (Auto) 8.4 Eos % (Auto) 0.6 L Baso % (Auto) 0.5 Neut # (Auto) 68494 H Lymph # (Auto) 1800 [place] # (Auto) 1200 H Eos # (Auto) 100 Baso # (Auto) 100 Sodium 137 Potassium 4.1 Chloride 104 Carbon Dioxide 20 L BUN 11 Creatinine 0.69 Estimated GFR > 60.0 BUN/Creatinine Ratio 15.9 Glucose 119 H Calcium 9.4 Total Bilirubin 0.8 AST 28 ALT 30 Alkaline Phosphatase 73 Total Protein 8.0 Albumin 4.8 Globulin 3.2 Albumin/Globulin Ratio 1.5 Lipase 105 Urine Color Brown Urine Appearance Cloudy Urine pH 5.0 Ur Specific [place] >=1.030 H Urine Protein 3+ H Urine Glucose (UA) Trace H Urine Ketones 1+ H Urine Occult Blood 3+ H Urine Nitrate Negative Urine Bilirubin 1+ H Ur Bilirubin Confirm Positive H Urine Urobilinogen 0.2 Ur Leukocyte Esterase Trace H Urine RBC >100/hpf H Urine WBC 0-1/hpf Ur Squamous Epith Cells 5-10 /hpf H Amorphous Sediment 2+ Urine Bacteria Many (>30) H Ur Culture Indicated? Cult not indicated SARS-CoV-2 (PCR) 07/24/21 10:10 WBC RBC Hgb Hct MCV MCH MCHC RDW Plt Count Neut % (Auto) Lymph % (Auto) [place] % (Auto) Eos % (Auto) Baso % (Auto) Neut # (Auto) Lymph # (Auto) [place] # (Auto) Eos # (Auto) Baso # (Auto) Sodium Potassium Chloride Carbon Dioxide BUN Creatinine Estimated GFR BUN/Creatinine Ratio Glucose Calcium Total Bilirubin AST ALT Alkaline Phosphatase Total Protein Albumin Globulin Albumin/Globulin Ratio Lipase Urine Color Urine Appearance Urine pH Ur Specific [place] Urine Protein Urine Glucose (UA) Urine Ketones Urine Occult Blood Urine Nitrate Urine Bilirubin Ur Bilirubin Confirm Urine Urobilinogen Ur Leukocyte Esterase Urine RBC Urine WBC Ur Squamous Epith Cells Amorphous Sediment Urine Bacteria Ur Culture Indicated? SARS-CoV-2 (PCR) Negative Assessment & Plan Assessment & Plan narrative: Assessment: 1. Obstructing 8 mm right ureteropelvic junction calculus. 2. UTI/right pyelonephritis. 3. History of multiple bilateral recurrent nephrolithiasis. Plan: 1. Discussion and informed consent today for urgent CYSTOSCOPY/PLACEMENT RIGHT URETERAL STENT. 2. Future cystoscopy and right ureteroscopic laser lithotripsy. 3. Future metabolic stone risk evaluation. Time Spent With Patient Critical Care time: I spent a total of [] minutes of critical care time on this patient's care today; this time is exclusive of procedural time.
[2021-07-24] MEDS: LACTATED RINGERS 1,000 ML 42 ML IV (11:29)
--- NOTE | 2021-07-24 12:16 | SUR.OPER ---
Lithotomy on padded OR bed, head on pillow, arms secured on padded arm boards at <90 degrees abduction. Legs secured in padded yellow fins stirrups.
--- NOTE | 2021-07-24 12:22 | P.OP_ITS ---
Operative Date/Time/Diagnoses Date of procedure: 07/24/21 Time of procedure: 12:22 Pre-op diagnosis: 1. Obstructing 8 mm right ureteropelvic junction calculus. 2. UTI/right pyelonephritis. Procedure & Clinicians Procedure: 1. Cystoscopy/placement right ureteral stent (7 [place] by 22-32 cm). 2. Cystoscopy/right ureteral stone manipulation without removal. Same procedure as scheduled: Yes Indications: 1. Obstructing 8 mm right ureteropelvic junction calculus. 2. Urinary tract infection/right pyelonephritis. Surgeon: Melody Park Click Yes if Unassisted: Yes Anesthesia Type: General Operative Notes Findings: 1. Urethra-normal caliber without lesion or obstruction. 2. Bladder-hyperemic. Normal position of bilateral orifices. 3. Cloudy efflux emanating from right collecting system following position of right ureteral stent. Closure Type: not applicable Specimen(s): none sent Applied: other (Seven [place] by 22-32 cm multi-length ureteral stent.) Estimated Blood Loss (mL): 0 Blood products transfused: none Tourniquet time (min): 0 Procedure in detail: The patient was positioned supine and administered general anesthesia. The lower abdomen, genitalia, and groin were then prepped and draped in sterile fashion. The 22 [place] panendoscope was then passed the lower urinary tract with the findings as described above. A 0.35 hybrid guidewire was then advanced in the right collecting system under direct and fluoroscopic guidance. Next, a 7 [place] by 22-32 cm multi-length stent was selected and this too was advanced over the hybrid guidewire under direct and fluoroscopic guidance. No retrieval line was left attached. The bladder was then drained completely and all instrumentation was removed. Patient was then repositioned in supine, was awakened, and transferred to [facility] in stable condition. Complications: none Post-operative Condition: stable Disposition: PACU Plan for aftercare: Discharge home.
[2021-07-24] MEDS: HYDROCODONE/ACET 5/325 TABLET 1 TAB PO ×2 (13:34→15:12)
[2021-07-24] MEDS: MEPERIDINE 50 MG/ML INJ IV (13:59)
--- NOTE | 2021-07-24 14:02 | SUR.PHASEII ---
Assumed care of pt at 1323, VSS, pt c/o left flank and genital pain 03/19 and noted shivering. Pt states she shivers w anxiety. pt asked for medication for shivering and Demorol 25 mg given. Hydrocodone given for pain with good results. Will continue to monitor.
--- NOTE | 2021-07-24 15:12 | SUR.PHASEII ---
Pt awaitng ride home anticipated at 4pm. Pt c/o flank pain 03/19, second hydrocodone given w good results, pt verbalized relief.
--- NOTE | 2021-07-24 16:04 | SUR.PHASEII ---
Pt verbalized pain relief from second hydrocodone, complete cessation of shivering, able to urinate pink tinged urine, tolerate water, pt escorted to hosp er entrance via wheelchair, pt verbalized understanding of d/c instructions
== END 2021-07-24 16:05 | disposition home or self-care (01) ==
LOC: ED 09:48 → AC 12:30
PROVIDERS: Emergency Medicine; Admitting Provider Specialist; Emergency Provider Emergency Medicine; Referring Provider Emergency Medicine; Visit Provider Specialist
PROC: (CPT 52330; principal; 2021-07-24 20:25)
DX: N20.1 Calculus of ureter (principal); N30.90 Cystitis, unspecified without hematuria; N10 Acute pyelonephritis; J45.909 Unspecified asthma, uncomplicated; F43.10 Post-traumatic stress disorder, unspecified; U07.1 COVID-19; Z20.822 Contact with and (suspected) exposure to COVID-19; Z87.442 Personal history of urinary calculi
CPT/HCPCS: 52330; 52332; 36415; 74018; 74176; 76000; 80053; 81001; 83690; 85025; 87086; 87635; 96361; 96365; 96375; 99284; C9803; G0378; J0696; J1100; J1170; J1885; J2175; J2250; J2405; J2704; J3010

== ENCOUNTER → 2021-07-27 19:27 | Outpatient (CLI) | payer OTHER, SELFPAY ==
--- NOTE | 2021-07-27 19:30 | DI.RAD.S_ITS ---
PROCEDURE: XR KUB INDICATIONS: kidney stone TECHNIQUE: One view of the abdomen acquired. COMPARISON: July 24, 2021. FINDINGS: Surgical changes and devices: A right ureteral stent is seen in situ. An intrauterine device projects over the central pelvis. Bowel: Nonspecific bowel gas pattern. Mild to moderate stool burden in the ascending through transverse colon. Soft tissues: 7 mm calculus adjacent to the proximal aspect of the right ureteral stent. Visualized solid organ contours appear normal in size. Bones: No suspicious bony lesions. IMPRESSION: 7 mm calculus adjacent to the proximal aspect of the right ureteral stent. Dictated by: Anibal Esparza M.D. on 07/28/2021 at 7:53 Approved by: Anibal Esparza M.D. on 07/28/2021 at 7:59
== END ==
PROVIDERS: Referring Provider Specialist; Visit Provider Specialist
DX: N20.0 Calculus of kidney (principal); Z96.0 Presence of urogenital implants
CPT/HCPCS: 74018

== ENCOUNTER 2021-07-27 19:40 | Observation (INO) | payer OTHER, SELFPAY ==
[2021-07-27 19:43] VITALS: BP 146/85; PULSE 98; RESP 24; TEMP 36.9; O2SAT 97
--- NOTE | 2021-07-27 20:01 | ED_ITS ---
HPI - Abdominal Pain <Nori Miller MD - Last Filed: 07/29/21 02:00> General Chief Complaint: Abdominal Pain Stated Complaint: KIDNEY STONES PAIN Time Seen by Provider: 07/27/21 19:57 Source: patient Mode of arrival: Ambulatory History of Present Illness HPI narrative: 35-year-old woman with a long history of nephrolithiasis, lithotripsies and recurrent issues with kidney stones. Was seen on July 24 here with an 8 x 5 mm stone in the right ureteropelvic junction. She was taken to the operating room by Dr. Park and a stent was placed. She presented to [facility] on July 26 complaints of pain worse CT KUB was repeated. It revealed the stone minimally changed in position and ureteral stent present in appropriately placed. She presents today complaining of worsening pain. KUB x- ray was repeated prior to arrival in the ER. She reports that she has had little sleep over the last 2 days. She does have extensive history with kidney stones lithotripsy and stents and has never experienced quite level of pain she is currently having. Concern on July 24 was for infection however urinalysis from the comes back with no growth. Related Data Home Medications Medication Instructions Recorded Confirmed acetaminophen 500 mg tablet 500 mg PO Q6H PRN 07/27/18 07/27/18 (Tylenol Extra Strength) [id number] 250 1 tab PO Q4-6H PRN 07/27/18 07/27/18 mg-250 mg-65 mg tablet (Excedrin Migraine) Previous Rx's Medication Instructions Recorded ciprofloxacin HCl 500 mg tablet 500 mg PO Q12H #20 tab 07/24/21 oxycodone 5 mg tablet 5 mg PO Q4H PRN #10 tab 07/24/21 oxycodone 5 mg tablet 5 mg PO Q4H PRN #20 tab 07/28/21 tamsulosin 0.4 mg capsule 0.4 mg PO DAILY #30 cap 07/28/21 Allergies Allergy/AdvReac Type Severity Reaction Status Date / Time sulfamethoxazole Allergy Severe Seizures, Verified 06/20/21 13:44 [From Bactrim] rash, fever, swelling trimethoprim [From Bactrim] Allergy Severe Seizures, Verified 06/20/21 13:44 rash, fever, swelling Review of Systems <Nori Miller MD - Last Filed: 07/29/21 02:00> Review of Systems Narrative: Remainder of complete review of systems is otherwise unremarkable except for that included in the HPI. Patient History <Nori Miller MD - Last Filed: 07/29/21 02:00> Medical History Lumbar strain Nephrolithiasis Radicular pain of both lower extremities Surgical History History of lithotripsy Status post ORIF of fracture of ankle Social History household members: none Smoking Status: Never smoker alcohol intake: former Smoking Status: Never smoker Substance Use Type: marijuana Exam <Nori Miller MD - Last Filed: 07/29/21 02:00> Narrative Exam Narrative: General: In acute pain, fatigued, Able to give a complete and coherent history. Well-nourished well-developed HEENT: Moist mucous membranes, normal sclera with reactive pupils, Respiratory: Lungs are clear to auscultation, no wheezing no rales no rhonchi. Full and symmetrical air movement Cardiac: Regular rate and rhythm no murmurs no bruits Abdomen: Soft, nontender, good bowel tones, no rebound or guarding. Right flan k pain Skin: Warm and dry, no rashes Neurologic: Grossly neurologically intact with no obvious asymmetries or abnormalities Extremities: No trauma, well perfused Psych: Cooperative, appropriate insight and affect Initial Vital Signs Initial Vital Signs: Vital Signs Temperature 98.4 F 07/27/21 19:43 Pulse Rate 98 H 07/27/21 19:43 Respiratory Rate 24 07/27/21 19:43 Blood Pressure 146/85 H 07/27/21 19:43 Pulse Oximetry 97 07/27/21 19:43 <Jasper Geiger DO - Last Filed: 07/28/21 08:38> Initial Vital Signs Initial Vital Signs: Vital Signs Temperature 98.4 F 07/27/21 19:43 Pulse Rate 98 H 07/27/21 19:43 Respiratory Rate 24 07/27/21 19:43 Blood Pressure 146/85 H 07/27/21 19:43 Pulse Oximetry 97 07/27/21 19:43 Course <Nori Miller MD - Last Filed: 07/29/21 02:00> Orders Ordered: Acetaminophen (Acetaminophen 325 Mg Tablet) 650 mg PO Q6HR PRN PRN Reason: Fever/Mild Pain (1-3) Hydromorphone HCl (Hydromorphone 0.5 Mg Inj) 0.5 mg IV Q1H PRN PRN Reason: Pain, Moderate (4-6) Last Admin: 07/28/21 22:52 Dose: 0.5 mg Documented by: SERENE Lactated Ringer's (Lactated Ringers) 1,000 mls @ 100 mls/hr IV CONT LAM Last Admin: 07/28/21 23:59 Dose: 100 mls/hr Documented by: LILIAN Ketorolac Tromethamine (Ketorolac 30 Mg/Ml Vial) 30 mg IV Q6H PRN PRN Reason: Pain, Moderate (4-6) Stop: 08/03/21 01:08 Lorazepam (Lorazepam 2 Mg/Ml Inj) 0.5 mg IV Q4HR PRN PRN Reason: Anxiety Last Admin: 07/29/21 00:40 Dose: 0.5 mg Documented by: LILIAN Lorazepam (Lorazepam 0.5 Mg Tablet) 0.5 mg PO Q4HR PRN PRN Reason: Anxiety Ondansetron HCl (Ondansetron 4 Mg/2 Ml Inj) 4 mg IV Q4HR PRN PRN Reason: Nausea And Vomiting Oxycodone HCl (Oxycodone Ir 5 Mg Tablet) 5 mg PO Q4HR PRN PRN Reason: Pain, Moderate (4-6) Oxycodone HCl (Oxycodone Ir 10 Mg Tablet) 10 mg PO Q3HR PRN PRN Reason: Pain, Severe (7-10) Discontinued Medications Belladonna Alkaloids/Opium (Belladonna/Opium Suppositories) 1 each NM NOW ONE Stop: 07/28/21 19:04 Last Admin: 07/28/21 19:03 Dose: 1 each Documented by: TAMIR Cefazolin Sodium (Cefazolin 1 Gm Vial) 2 gm IV NOW ONE Stop: 07/28/21 07:32 Last Admin: 07/28/21 18:25 Dose: 2 gm Documented by: Admin: 07/28/21 10:35 Dose: 2 gm Documented by: HECTOR Diphenhydramine HCl (Diphenhydramine 50 Mg/Ml Vial) 25 mg IV NOW ONE Stop: 07/28/21 00:22 Last Admin: 07/28/21 00:31 Dose: 25 mg Documented by: FRANKLYN Ephedrine Sulfate (Ephedrine 50 Mg/Ml Vial) 25 mg IM NOW ONE Stop: 07/28/21 20:03 Last Admin: 07/28/21 20:42 Dose: 25 mg Documented by: BHARATH Fentanyl (Fentanyl 100 Mcg/2 Ml Inj) 0 mcg IV Q5M PRN PRN Reason: Pain, Moderate (4-6) Furosemide (Furosemide 20 Mg/2 Ml Vial) 20 mg IV NOW ONE Stop: 07/28/21 19:23 Last Admin: 07/28/21 20:13 Dose: 20 mg Documented by: BHARATH Hydromorphone HCl (Hydromorphone 0.5 Mg Inj) 0.5 mg IV Q15MIN PRN PRN Reason: Pain, Last Admin: 07/27/21 21:24 Dose: 0.5 mg Documented by: Admin: 07/27/21 20:42 Dose: 0.5 mg Documented by: Admin: 07/27/21 20:12 Dose: 0.5 mg Documented by: ARNOLDO Hydromorphone HCl (Hydromorphone 1 Mg Inj) 1 mg IV NOW ONE Stop: 07/27/21 23:20 Last Admin: 07/27/21 23:24 Dose: 1 mg Documented by: ARNOLDO Hydromorphone HCl (Hydromorphone 1 Mg Inj) 1 mg IV Q1HR PRN PRN Reason: Pain, Moderate (4-6) Last Admin: 07/28/21 14:13 Dose: 1 mg Documented by: Admin: 07/28/21 11:47 Dose: 1 mg Documented by: Admin: 07/28/21 10:21 Dose: 1 mg Documented by: Admin: 07/28/21 03:54 Dose: 1 mg Documented by: ARNOLDO Hydromorphone HCl (Hydromorphone 0.5 Mg Inj) 1 mg IV NOW ONE Stop: 07/28/21 08:02 Last Admin: 07/28/21 08:17 Dose: 1 mg Documented by: KAY Hydromorphone HCl (Hydromorphone 2 Mg Inj) 1 mg IV Q1HR PRN PRN Reason: Pain, Moderate (4-6) Last Admin: 07/28/21 20:04 Dose: 1 mg Documented by: Admin: 07/28/21 19:54 Dose: 1 mg Documented by: Admin: 07/28/21 16:20 Dose: 1 mg Documented by: RAMY Sodium Chloride (Normal Saline 0.9%) 1,000 mls @ 1,000 mls/hr IV BOLUS ONE Stop: 07/27/21 20:57 Last Infusion: 07/27/21 21:46 Dose: 0 mls/hr Documented by: Admin: 07/27/21 20:08 Dose: 1,000 mls/hr Documented by: FRANKLYN Sodium Chloride (Normal Saline 0.9%) 1,000 mls @ 1,000 mls/hr IV BOLUS ONE Stop: 07/28/21 01:20 Last Infusion: 07/28/21 01:35 Dose: 0 mls/hr Documented by: Admin: 07/28/21 00:32 Dose: 1,000 mls/hr Documented by: FRANKLYN Lidocaine HCl 5.1 ml/ Sodium (Chloride) 55.1 mls @ 330.6 mls/hr IV NOW ONE Stop: 07/28/21 00:55 Last Infusion: 07/28/21 01:18 Dose: 0 mls/hr Documented by: Admin: 07/28/21 01:01 Dose: 330.6 mls/hr Documented by: ARNOLDO Lactated Ringer's (Lactated Ringers) 500 mls @ 100 mls/hr IV CONT LAM Last Admin: 07/28/21 10:46 Dose: 100 mls/hr Documented by: HECTOR Lactated Ringer's (Lactated Ringers) 1,000 mls @ 42 mls/hr IV CONT LAM Last Admin: 07/28/21 21:33 Dose: Not Given Documented by: SERENE Ketorolac Tromethamine (Ketorolac 30 Mg/Ml Vial) 15 mg IV NOW ONE Stop: 07/27/21 19:59 Last Admin: 07/27/21 20:07 Dose: 15 mg Documented by: FRANKLYN Lorazepam (Lorazepam 2 Mg/Ml Inj) 0.25 mg IV NOW PRN PRN Reason: Anxiety Last Admin: 07/28/21 20:42 Dose: 0.25 mg Documented by: Admin: 07/28/21 20:32 Dose: 0.25 mg Documented by: BHARATH Meperidine HCl (Meperidine 50 Mg/Ml Inj) 12.5 mg IV PACUNOW PRN PRN Reason: Mild pain or shivering Last Admin: 07/28/21 19:59 Dose: 12.5 mg Documented by: BHARATH Ondansetron HCl (Ondansetron 4 Mg/2 Ml Inj) 4 mg IV NOW ONE Stop: 07/27/21 19:59 Last Admin: 07/27/21 20:08 Dose: 4 mg Documented by: FRANKLYN Ondansetron HCl (Ondansetron 4 Mg/2 Ml Inj) 4 mg IV NOW ONE Stop: 07/27/21 23:20 Last Admin: 07/27/21 23:29 Dose: 4 mg Documented by: ARNOLDO Ondansetron HCl (Ondansetron 4 Mg/2 Ml Inj) 4 mg IV NOW ONE Stop: 07/28/21 08:02 Last Admin: 07/28/21 08:18 Dose: 4 mg Documented by: KAY Ondansetron HCl (Ondansetron 4 Mg/2 Ml Inj) 4 mg IV NOW PRN PRN Reason: Nausea And Vomiting Last Admin: 07/28/21 19:52 Dose: 4 mg Documented by: BHARATH Oxycodone/Acetaminophen (Oxycodone/Acetaminophen 5/325 Tablet) 1 tab PO PACUNOW PRN PRN Reason: Mild or Moderate Pain Last Admin: 07/28/21 20:31 Dose: 1 tab Documented by: BHARATH Prochlorperazine (Prochlorperazine 10 Mg/2 Ml Vial) 10 mg IV NOW ONE Stop: 07/28/21 00:22 Last Admin: 07/28/21 00:32 Dose: 10 mg Documented by: FRANKLYN Prochlorperazine (Prochlorperazine 10 Mg/2 Ml Vial) 10 mg IV NOW ONE Stop: 07/28/21 20:05 Last Admin: 07/28/21 20:10 Dose: 10 mg Documented by: BHARATH Vital Signs Vital signs: Vital Signs - 8 hr 07/28/21 01:11 07/28/21 01:30 Pulse Rate 61 57 L Blood Pressure 134/63 Pulse Oximetry 97 95 <Jasper Geiger, DO - Last Filed: 07/28/21 08:38> Orders Ordered: Acetaminophen (Acetaminophen 325 Mg Tablet) 650 mg PO Q6HR PRN PRN Reason: Fever/Mild Pain (1-3) Hydromorphone HCl (Hydromorphone 0.5 Mg Inj) 0.5 mg IV Q1H PRN PRN Reason: Pain, Moderate (4-6) Last Admin: 07/28/21 22:52 Dose: 0.5 mg Documented by: SERENE Lactated Ringer's (Lactated Ringers) 1,000 mls @ 100 mls/hr IV CONT LAM Last Admin: 07/28/21 23:59 Dose: 100 mls/hr Documented by: LILIAN Ketorolac Tromethamine (Ketorolac 30 Mg/Ml Vial) 30 mg IV Q6H PRN PRN Reason: Pain, Moderate (4-6) Stop: 08/03/21 01:08 Lorazepam (Lorazepam 2 Mg/Ml Inj) 0.5 mg IV Q4HR PRN PRN Reason: Anxiety Last Admin: 07/29/21 00:40 Dose: 0.5 mg Documented by: LILIAN Lorazepam (Lorazepam 0.5 Mg Tablet) 0.5 mg PO Q4HR PRN PRN Reason: Anxiety Ondansetron HCl (Ondansetron 4 Mg/2 Ml Inj) 4 mg IV Q4HR PRN PRN Reason: Nausea And Vomiting Oxycodone HCl (Oxycodone Ir 5 Mg Tablet) 5 mg PO Q4HR PRN PRN Reason: Pain, Moderate (4-6) Oxycodone HCl (Oxycodone Ir 10 Mg Tablet) 10 mg PO Q3HR PRN PRN Reason: Pain, Severe (7-10) Discontinued Medications Belladonna Alkaloids/Opium (Belladonna/Opium Suppositories) 1 each NM NOW ONE Stop: 07/28/21 19:04 Last Admin: 07/28/21 19:03 Dose: 1 each Documented by: TAMIR Cefazolin Sodium (Cefazolin 1 Gm Vial) 2 gm IV NOW ONE Stop: 07/28/21 07:32 Last Admin: 07/28/21 18:25 Dose: 2 gm Documented by: Admin: 07/28/21 10:35 Dose: 2 gm Documented by: HECTOR Diphenhydramine HCl (Diphenhydramine 50 Mg/Ml Vial) 25 mg IV NOW ONE Stop: 07/28/21 00:22 Last Admin: 07/28/21 00:31 Dose: 25 mg Documented by: FRANKLYN Ephedrine Sulfate (Ephedrine 50 Mg/Ml Vial) 25 mg IM NOW ONE Stop: 07/28/21 20:03 Last Admin: 07/28/21 20:42 Dose: 25 mg Documented by: BHARATH Fentanyl (Fentanyl 100 Mcg/2 Ml Inj) 0 mcg IV Q5M PRN PRN Reason: Pain, Moderate (4-6) Furosemide (Furosemide 20 Mg/2 Ml Vial) 20 mg IV NOW ONE Stop: 07/28/21 19:23 Last Admin: 07/28/21 20:13 Dose: 20 mg Documented by: BHARATH Hydromorphone HCl (Hydromorphone 0.5 Mg Inj) 0.5 mg IV Q15MIN PRN PRN Reason: Pain, Last Admin: 07/27/21 21:24 Dose: 0.5 mg Documented by: Admin: 07/27/21 20:42 Dose: 0.5 mg Documented by: Admin: 07/27/21 20:12 Dose: 0.5 mg Documented by: ARNOLDO Hydromorphone HCl (Hydromorphone 1 Mg Inj) 1 mg IV NOW ONE Stop: 07/27/21 23:20 Last Admin: 07/27/21 23:24 Dose: 1 mg Documented by: ARNOLDO Hydromorphone HCl (Hydromorphone 1 Mg Inj) 1 mg IV Q1HR PRN PRN Reason: Pain, Moderate (4-6) Last Admin: 07/28/21 14:13 Dose: 1 mg Documented by: Admin: 07/28/21 11:47 Dose: 1 mg Documented by: Admin: 07/28/21 10:21 Dose: 1 mg Documented by: Admin: 07/28/21 03:54 Dose: 1 mg Documented by: ARNOLDO Hydromorphone HCl (Hydromorphone 0.5 Mg Inj) 1 mg IV NOW ONE Stop: 07/28/21 08:02 Last Admin: 07/28/21 08:17 Dose: 1 mg Documented by: KAY Hydromorphone HCl (Hydromorphone 2 Mg Inj) 1 mg IV Q1HR PRN PRN Reason: Pain, Moderate (4-6) Last Admin: 07/28/21 20:04 Dose: 1 mg Documented by: Admin: 07/28/21 19:54 Dose: 1 mg Documented by: Admin: 07/28/21 16:20 Dose: 1 mg Documented by: RAMY Sodium Chloride (Normal Saline 0.9%) 1,000 mls @ 1,000 mls/hr IV BOLUS ONE Stop: 07/27/21 20:57 Last Infusion: 07/27/21 21:46 Dose: 0 mls/hr Documented by: Admin: 07/27/21 20:08 Dose: 1,000 mls/hr Documented by: FRANKLYN Sodium Chloride (Normal Saline 0.9%) 1,000 mls @ 1,000 mls/hr IV BOLUS ONE Stop: 07/28/21 01:20 Last Infusion: 07/28/21 01:35 Dose: 0 mls/hr Documented by: Admin: 07/28/21 00:32 Dose: 1,000 mls/hr Documented by: FRANKLYN Lidocaine HCl 5.1 ml/ Sodium (Chloride) 55.1 mls @ 330.6 mls/hr IV NOW ONE Stop: 07/28/21 00:55 Last Infusion: 07/28/21 01:18 Dose: 0 mls/hr Documented by: Admin: 07/28/21 01:01 Dose: 330.6 mls/hr Documented by: ARNOLDO Lactated Ringer's (Lactated Ringers) 500 mls @ 100 mls/hr IV CONT LAM Last Admin: 07/28/21 10:46 Dose: 100 mls/hr Documented by: HECTOR Lactated Ringer's (Lactated Ringers) 1,000 mls @ 42 mls/hr IV CONT LAM Last Admin: 07/28/21 21:33 Dose: Not Given Documented by: SERENE Ketorolac Tromethamine (Ketorolac 30 Mg/Ml Vial) 15 mg IV NOW ONE Stop: 07/27/21 19:59 Last Admin: 07/27/21 20:07 Dose: 15 mg Documented by: FRANKLYN Lorazepam (Lorazepam 2 Mg/Ml Inj) 0.25 mg IV NOW PRN PRN Reason: Anxiety Last Admin: 07/28/21 20:42 Dose: 0.25 mg Documented by: Admin: 07/28/21 20:32 Dose: 0.25 mg Documented by: BHARATH Meperidine HCl (Meperidine 50 Mg/Ml Inj) 12.5 mg IV PACUNOW PRN PRN Reason: Mild pain or shivering Last Admin: 07/28/21 19:59 Dose: 12.5 mg Documented by: BHARATH Ondansetron HCl (Ondansetron 4 Mg/2 Ml Inj) 4 mg IV NOW ONE Stop: 07/27/21 19:59 Last Admin: 07/27/21 20:08 Dose: 4 mg Documented by: FRANKLYN Ondansetron HCl (Ondansetron 4 Mg/2 Ml Inj) 4 mg IV NOW ONE Stop: 07/27/21 23:20 Last Admin: 07/27/21 23:29 Dose: 4 mg Documented by: ARNOLDO Ondansetron HCl (Ondansetron 4 Mg/2 Ml Inj) 4 mg IV NOW ONE Stop: 07/28/21 08:02 Last Admin: 07/28/21 08:18 Dose: 4 mg Documented by: KAY Ondansetron HCl (Ondansetron 4 Mg/2 Ml Inj) 4 mg IV NOW PRN PRN Reason: Nausea And Vomiting Last Admin: 07/28/21 19:52 Dose: 4 mg Documented by: BHARATH Oxycodone/Acetaminophen (Oxycodone/Acetaminophen 5/325 Tablet) 1 tab PO PACUNOW PRN PRN Reason: Mild or Moderate Pain Last Admin: 07/28/21 20:31 Dose: 1 tab Documented by: BHARATH Prochlorperazine (Prochlorperazine 10 Mg/2 Ml Vial) 10 mg IV NOW ONE Stop: 07/28/21 00:22 Last Admin: 07/28/21 00:32 Dose: 10 mg Documented by: FRANKLYN Prochlorperazine (Prochlorperazine 10 Mg/2 Ml Vial) 10 mg IV NOW ONE Stop: 07/28/21 20:05 Last Admin: 07/28/21 20:10 Dose: 10 mg Documented by: BHARATH Vital Signs Vital signs: Vital Signs - 8 hr 07/28/21 01:11 07/28/21 01:30 Pulse Rate 61 57 L Blood Pressure 134/63 Pulse Oximetry 97 95 MDM - Abdominal Pain <Nori Miller MD - Last Filed: 07/29/21 02:00> Lab Data Result diagrams: 07/27/21 19:55 07/27/21 19:55 Labs: Lab Results 07/27/21 07/27/21 07/27/21 Range/Units 19:55 19:55 20:52 WBC 8.6 (4.5-11.0) X10^3/uL RBC 4.59 (4.0-5.2) X10^6/uL Hgb 13.7 (12.0-16.0) g/dL Hct 40.5 (36-46) % MCV 88.3 (80-100) fL MCH 29.9 (26-34) PG MCHC 33.9 (30-36) % RDW 13.5 (11.6-14.8) % Plt Count 349 (150-400) X10^3/uL Neut % (Auto) 59.9 (50-75) % Lymph % (Auto) 26.5 (25-40) % Wilkinson % (Auto) 9.9 (3-14) % Eos % (Auto) 2.9 (2-4) % Baso % (Auto) 0.8 (0-2) % Neut # (Auto) 5200 (7240-2900) /uL Lymph # (Auto) 2300 (5546-8734) /uL Wilkinson # (Auto) 900 (0-900) /uL Eos # (Auto) 300 (0-450) /uL Baso # (Auto) 100 (0-100) /uL Sodium 138 (137-145) mmol/L Potassium 3.8 (3.4-5.1) mmol/L Chloride 105 (98-107) mmol/L Carbon Dioxide 25 (22-32) mmol/L BUN 8 (7-17) mg/dL Creatinine 0.70 (0.52-1.04) mg/dL Estimated GFR > 60.0 (>60) mL/min BUN/Creatinine Ratio 11.4 (6-22) Glucose 113 H (70-100) mg/dL Calcium 9.4 (8.4-10.2) mg/dL Total Bilirubin 0.4 (0.2-1.3) mg/dL AST 28 (14-36) IU/L ALT 32 (<35) IU/L Alkaline Phosphatase 63 (38-126) U/L Total Protein 7.1 (6.3-8.2) g/dL Albumin 4.2 (3.5-5.0) g/dL Globulin 2.9 (1.7-4.1) g/dL Albumin/Globulin Ratio 1.4 (1.0-2.8) Urine Color Red Urine Appearance Cloudy Urine pH 5.5 (4.5-8.0) Ur Specific Republic 1.025 (1.000-1.035) Urine Protein 3+ H (Negative) Urine Glucose (UA) Trace H (Negative) g/dL Urine Ketones Negative (NEGATIVE) Urine Occult Blood 3+ H (Negative) Urine Nitrate Negative (Negative) Urine Bilirubin Negative (NEGATIVE) Urine Urobilinogen 0.2 (0.2) E.U./dL Ur Leukocyte Esterase 1+ H (NEGATIVE) Urine RBC >100/hpf H (0-5/HPF) Urine WBC 1-5/hpf (0-5/HPF) Ur Squamous Epith Cells 0-1 /hpf (0-5/HPF) Urine Bacteria Few (2-10) H (None) Urine Mucus 1+ H (Negative) Ur Culture Indicated? Specimen cultured Imaging Data XR KUB: My Impression: Appropriately placed right ureteral stent unchanged stone location MDM Narrative Medical decision making narrative: 35-year-old woman with severe recurrent chronic nephrolithiasis currently with an 8 mm stone in the right ureterovesical junction with concern for infection initially entertained. Urine from July 10 comes back with no growth. She has had continued pain since being initially seen on the and stent placed that time. She had an ER visit [facility] yesterday secondary to pain and comes back today with recurrent persistent vomiting inability to eat and uncontrolled pain despite having oxycodone and antiemetics available to her at home. Labs are reassuring with no evidence of sepsis or overwhelming infection. It looks like the stent is appropriately placed in the stone has not changed position. In light of the pain and vomiting that have only been minimally controlled with fluids, IV Dilaudid, Zofran and eventually Compazine and Benadryl added for nausea care is reviewed with Dr. Park. Will opt to admit her overnight for continued hydration pain and nausea control and he will evaluate her and see if he will be able to treat her stone with the laser tomorrow. No floor beds are available this evening, patient is boarded in the emergency department. <Jasper Geiger, DO - Last Filed: 07/28/21 08:38> Lab Data Labs: Lab Results 07/27/21 07/27/21 07/27/21 Range/Units 19:55 19:55 20:52 WBC 8.6 (4.5-11.0) X10^3/uL RBC 4.59 (4.0-5.2) X10^6/uL Hgb 13.7 (12.0-16.0) g/dL Hct 40.5 (36-46) % MCV 88.3 (80-100) fL MCH 29.9 (26-34) PG MCHC 33.9 (30-36) % RDW 13.5 (11.6-14.8) % Plt Count 349 (150-400) X10^3/uL Neut % (Auto) 59.9 (50-75) % Lymph % (Auto) 26.5 (25-40) % Wilkinson % (Auto) 9.9 (3-14) % Eos % (Auto) 2.9 (2-4) % Baso % (Auto) 0.8 (0-2) % Neut # (Auto) 5200 (2094-9329) /uL Lymph # (Auto) 2300 (7364-6986) /uL Wilkinson # (Auto) 900 (0-900) /uL Eos # (Auto) 300 (0-450) /uL Baso # (Auto) 100 (0-100) /uL Sodium 138 (137-145) mmol/L Potassium 3.8 (3.4-5.1) mmol/L Chloride 105 (98-107) mmol/L Carbon Dioxide 25 (22-32) mmol/L BUN 8 (7-17) mg/dL Creatinine 0.70 (0.52-1.04) mg/dL Estimated GFR > 60.0 (>60) mL/min BUN/Creatinine Ratio 11.4 (6-22) Glucose 113 H (70-100) mg/dL Calcium 9.4 (8.4-10.2) mg/dL Total Bilirubin 0.4 (0.2-1.3) mg/dL AST 28 (14-36) IU/L ALT 32 (<35) IU/L Alkaline Phosphatase 63 (38-126) U/L Total Protein 7.1 (6.3-8.2) g/dL Albumin 4.2 (3.5-5.0) g/dL Globulin 2.9 (1.7-4.1) g/dL Albumin/Globulin Ratio 1.4 (1.0-2.8) Urine Color Red Urine Appearance Cloudy Urine pH 5.5 (4.5-8.0) Ur Specific Republic 1.025 (1.000-1.035) Urine Protein 3+ H (Negative) Urine Glucose (UA) Trace H (Negative) g/dL Urine Ketones Negative (NEGATIVE) Urine Occult Blood 3+ H (Negative) Urine Nitrate Negative (Negative) Urine Bilirubin Negative (NEGATIVE) Urine Urobilinogen 0.2 (0.2) E.U./dL Ur Leukocyte Esterase 1+ H (NEGATIVE) Urine RBC >100/hpf H (0-5/HPF) Urine WBC 1-5/hpf (0-5/HPF) Ur Squamous Epith Cells 0-1 /hpf (0-5/HPF) Urine Bacteria Few (2-10) H (None) Urine Mucus 1+ H (Negative) Ur Culture Indicated? Specimen cultured MDM Narrative Medical decision making narrative: 35-year-old woman with severe recurrent chronic nephrolithiasis currently with an 8 mm stone in the right ureterovesical junction with concern for infection initially entertained. Urine from July 24 comes back with no growth. She has had continued pain since being initially seen on the and stent placed that time. She had an ER visit [facility] yesterday secondary to pain and comes back today with recurrent persistent vomiting inability to eat and uncontrolled pain despite having oxycodone and antiemetics available to her at home. Labs are reassuring with no evidence of sepsis or overwhelming infection. It looks like the stent is appropriately placed in the stone has not changed position. In light of the pain and vomiting that have only been minimally controlled with fluids, IV Dilaudid, Zofran and eventually Compazine and Benadryl added for nausea care is reviewed with Dr. Park. Will opt to admit her overnight for continued hydration pain and nausea control and he will evaluate her and see if he will be able to treat her stone with the laser tomorrow. No floor beds are available this evening, patient is boarded in the emergency department. Dr geiger: Received turned over from Dr. Miller. Reviewed patient's history and physical. Patient was seen in the emergency department by Dr. Park with Urology. I also introduced myself to the patient. Pain has been mostly controlled with current regiment. Plan will be is to keep in the emergency department until a bed opens up for observation with plan of surgical intervention of her kidney stone this afternoon. Patient is aware of plan. Currently stable. Discharge Plan Departure Patient Disposition: Admitted as Observation Clinical Impression: Kidney stone, Uncontrolled pain Admit Date/Time: 07/28/21 01:52 Admit Provider: Melody Park
[2021-07-27 20:02] LABS: Add Manual Diff / Slide Review NO; Basophils Absolute Auto 100 /uL (0-100); Basophils Percent Auto 0.8 % (0-2); Eosinophils Absolute Auto 300 /uL (0-450); Eosinophils Percent Auto 2.9 % (2-4); Hematocrit 40.5 % (36-46); Hemoglobin 13.7 g/dL (12.0-16.0); Lymphocytes Absolute Auto 2300 /uL (1100-4500); Lymphocytes Percent Auto 26.5 % (25-40); Mean Corpuscular HGB Conc 33.9 % (30-36); Mean Corpuscular Hemoglobin 29.9 PG (26-34); Mean Corpuscular Volume 88.3 fL (80-100); Monocytes Absolute Auto 900 /uL (0-900); Monocytes Percent Auto 9.9 % (3-14); Neutrophils Absolute Auto 5200 /uL (1500-7000); Neutrophils Percent Auto 59.9 % (50-75); Platelet Count 349 X10^3/uL (150-400); Red Blood Cell Count 4.59 X10^6/uL (4.0-5.2); Red Cell Distribution Width 13.5 % (11.6-14.8); White Blood Cell Count 8.6 X10^3/uL (4.5-11.0)
[2021-07-27] MEDS: KETOROLAC 30 MG/ML VIAL 15 MG IV (20:07)
[2021-07-27] MEDS: SODIUM CHLORIDE 0.9% 1,000 ML 1000 ML IV (20:08)
[2021-07-27] MEDS: ONDANSETRON 4 MG/2 ML INJ IV ×2 (20:08→23:29)
[2021-07-27] MEDS: HYDROMORPHONE 0.5 MG INJ IV ×3 (20:12→21:24)
[2021-07-27 20:19] LABS: Alanine Aminotransferase 32 IU/L (<35); Albumin 4.2 g/dL (3.5-5.0); Albumin Globulin Ratio 1.4 (1.0-2.8); Alkaline Phosphatase 63 U/L (38-126); Aspartate Aminotransferase 28 IU/L (14-36); BUN Creatinine Ratio 11.4 (6-22); Bilirubin Total 0.4 mg/dL (0.2-1.3); Blood Urea Nitrogen 8 mg/dL (7-17); Calcium 9.4 mg/dL (8.4-10.2); Carbon Dioxide 25 mmol/L (22-32); Chloride 105 mmol/L (98-107); Estimated Glomerular Filt Rate > 60.0 mL/min (>60); Globulin 2.9 g/dL (1.7-4.1); Glucose 113 mg/dL (70-100); HEMOLYSIS < 15 (0-50); Potassium 3.8 mmol/L (3.4-5.1); Sodium 138 mmol/L (137-145); Total Protein 7.1 g/dL (6.3-8.2)
[2021-07-27 21:05] LABS: Appearance Urine UA CLOUDY; Bilirubin Urine UA NEGATIVE (NEGATIVE); Color Urine UA RED; Glucose Urine UA TRACE g/dL (Negative); Ketones Urine UA NEGATIVE (NEGATIVE); Leukocyte Esterase Urine UA 1+ (NEGATIVE); Nitrite Urine UA NEGATIVE (Negative); Occult Blood Urine UA 3+ (Negative); Protein Urine UA 3+ (Negative); Specific Gravity Urine UA 1.025 (1.000-1.035); Urobilinogen Urine UA 0.2 E.U./dL (0.2)
[2021-07-27 21:15] LABS: pH Urine UA 5.5 (4.5-8.0)
[2021-07-27 21:16] LABS: Bacteria Urine Few (2-10); Mucus Urine 1+ (Negative); RBC Urine >100/HPF (0-5/HPF); Squamous Epithelial Cell Urine 0-1 /HPF (0-5/HPF); WBC Urine 1-5/HPF (0-5/HPF)
[2021-07-27 21:17] LABS: Culture Indicated Urine Specimen Cultured
[2021-07-27 21:49] VITALS: BP 156/74; PULSE 76; O2SAT 98
[2021-07-27] MEDS: HYDROMORPHONE 1 MG INJ IV (23:24)
[2021-07-28] VITALS (19 sets, daily range): BP systolic 128–164; BP diastolic 63–106; PULSE 57–99; RESP 13–22; TEMP 36–36.8; O2SAT 94–100; BMI 25.7; BMI 34.3; BMI 39.6
--- NOTE | 2021-07-28 | DI.RAD.S_ITS ---
PROCEDURE: XR ABDOMEN 1V INDICATIONS: RIGHT STENT PLACEMENT TECHNIQUE: 3 intraoperative fluoroscopic spot films were obtained during right ureteral stent placement. COMPARISON: [facility], CR, XR ABDOMEN 1V, 07/24/2021, 12:25. FINDINGS: Low resolution intraoperative fluoroscopic spot films show sequential placement of a right ureteral stent in the right renal pelvis IMPRESSION: Fluoroscopic guidance Approved by: Scot Mejia M.D. on 07/29/2021 at 11:50
[2021-07-28] MEDS: diphenhydrAMINE 50 MG/ML VIAL 25 MG IV (00:31)
[2021-07-28] MEDS: PROCHLORPERAZINE 10 MG/2 ML VIAL IV ×2 (00:32→20:10)
[2021-07-28] MEDS: SODIUM CHLORIDE 0.9% 1,000 ML 1000 ML IV (00:32)
[2021-07-28] MEDS: LIDOCAINE 2% 5.1 ML in SODIUM CHLORIDE 0.9% 50 ML 330.6 ML IV (01:01)
[2021-07-28] MEDS: HYDROMORPHONE 1 MG INJ IV ×4 (03:54→14:13)
[2021-07-28 07:32] LABS: COVID19 - ADMIT (NP swab/PCR) Negative (Negative)
--- NOTE | 2021-07-28 07:34 | PM.HP.1 ---
History of Present Illness History of Present Illness Date Patient Seen: 07/28/21 Time Patient Seen: 07:34 Date of Onset of Symptoms: 07/25/21 Chief complaint: KIDNEY STONES PAIN Narrative: The patient is a 35-year-old white female with a history of recurrent nephrolithiasis status post for previous ESWL by her reporting in the past that presents to the [facility] ED with complaint of intractable right renal colic. She underwent uncomplicated cystoscopy and placement right ureteral stent on 07/24/2021. She was to be seen this day in the Urology Clinic for follow-up and forced scheduling of definitive intervention pending urine cultures that were obtained on 07/24/2021. Final urine culture from that date has been reported as negative for pathogen. The patient had a plain film KUB obtained 07/27/2021, anticipation for review in the Urology Clinic today. Currently I am unable to pull up images for review on either [employer] PACS or [employer]. After discussion with Dr. Miller earlier this morning, the patient is admitted for pain control and definitive intervention of the obstructing 8 mm right UPJ/renal calculus. Patient History Medical History Lumbar strain Nephrolithiasis Radicular pain of both lower extremities Surgical History History of lithotripsy Status post ORIF of fracture of ankle Family & Social History Social History: household members none Tobacco & Substance use: Smoking Status Never smoker alcohol intake former Substance Use Type marijuana Meds Home Medications and Allergies Home Medications Medication Instructions Recorded Confirmed Type acetaminophen 500 mg tablet 500 mg PO Q6H PRN 07/27/18 07/27/18 History (Tylenol Extra Strength) [id number]-[id number]-[id number] 250 1 tab PO Q4-6H PRN 07/27/18 07/27/18 History mg-250 mg-65 mg tablet (Excedrin Migraine) lidocaine 5 % topical patch 3 patch TOP DAILY #30 each 12/18/18 Rx (Lidoderm) meloxicam 15 mg tablet 15 mg PO DAILY #14 tab 12/18/18 Rx tizanidine 4 mg capsule 4 mg PO Q6-8H PRN #10 cap 12/18/18 Rx tamsulosin 0.4 mg capsule 0.4 mg PO DAILY #14 cap 03/09/19 Rx hydrocodone 5 mg-acetaminophen 325 1 tab PO Q4-6H PRN #10 tab 05/23/19 Rx mg tablet ([place]) ketorolac 10 mg tablet 10 mg PO TID PRN #20 tab 05/23/19 Rx ondansetron 4 mg disintegrating 4 mg PO Q6H PRN #30 tab 05/23/19 Rx tablet tamsulosin 0.4 mg capsule (Flomax) 0.4 mg PO DAILY #7 cap 05/23/19 Rx ciprofloxacin HCl 500 mg tablet 500 mg PO Q12H #20 tab 07/24/21 Rx oxycodone 5 mg tablet 5 mg PO Q4H PRN #10 tab 07/24/21 Rx Allergies Allergy/AdvReac Type Severity Reaction Status Date / Time sulfamethoxazole Allergy Severe Seizures, Verified 06/20/21 13:44 [From Bactrim] rash, fever, swelling trimethoprim [From Bactrim] Allergy Severe Seizures, Verified 06/20/21 13:44 rash, fever, swelling Review of Systems Review of Systems ROS: Yes All systems reviewed with the patient and are negative except as otherwise documented Exam Vital Signs (past 8 hours): - 07/28/21 01:11 07/28/21 01:30 07/28/21 02:00 Pulse Rate 61 57 L 58 L Blood Pressure 134/63 134/64 Pulse Oximetry 97 95 95 Oxygen Delivery Method Room Air Narrative Exam Narrative: She is a well-developed, mildly over nourished white female in no acute distress currently. Head/neck-sclera clear and pupils are round and equal bilaterally. Chest-equal, clear, and unlabored expansion bilaterally. Heart-normal sinus rhythm. Objective Labs Result Diagrams: 07/27/21 19:55 07/27/21 19:55 Labs: Laboratory Results - last 24 hr 07/27/21 07/27/21 07/27/21 19:55 19:55 20:52 WBC 8.6 RBC 4.59 Hgb 13.7 Hct 40.5 MCV 88.3 MCH 29.9 MCHC 33.9 RDW 13.5 Plt Count 349 Neut % (Auto) 59.9 Lymph % (Auto) 26.5 [place] % (Auto) 9.9 Eos % (Auto) 2.9 Baso % (Auto) 0.8 Neut # (Auto) 5200 Lymph # (Auto) 2300 [place] # (Auto) 900 Eos # (Auto) 300 Baso # (Auto) 100 Sodium 138 Potassium 3.8 Chloride 105 Carbon Dioxide 25 BUN 8 Creatinine 0.70 Estimated GFR > 60.0 BUN/Creatinine Ratio 11.4 Glucose 113 H Calcium 9.4 Total Bilirubin 0.4 AST 28 ALT 32 Alkaline Phosphatase 63 Total Protein 7.1 Albumin 4.2 Globulin 2.9 Albumin/Globulin Ratio 1.4 Urine Color Red Urine Appearance Cloudy Urine pH 5.5 Ur Specific [place] 1.025 Urine Protein 3+ H Urine Glucose (UA) Trace H Urine Ketones Negative Urine Occult Blood 3+ H Urine Nitrate Negative Urine Bilirubin Negative Urine Urobilinogen 0.2 Ur Leukocyte Esterase 1+ H Urine RBC >100/hpf H Urine WBC 1-5/hpf Ur Squamous Epith Cells 0-1 /hpf Urine Bacteria Few (2-10) H Urine Mucus 1+ H Ur Culture Indicated? Specimen cultured SARS-CoV-2 (PCR) 07/28/21 06:36 WBC RBC Hgb Hct MCV MCH MCHC RDW Plt Count Neut % (Auto) Lymph % (Auto) [place] % (Auto) Eos % (Auto) Baso % (Auto) Neut # (Auto) Lymph # (Auto) [place] # (Auto) Eos # (Auto) Baso # (Auto) Sodium Potassium Chloride Carbon Dioxide BUN Creatinine Estimated GFR BUN/Creatinine Ratio Glucose Calcium Total Bilirubin AST ALT Alkaline Phosphatase Total Protein Albumin Globulin Albumin/Globulin Ratio Urine Color Urine Appearance Urine pH Ur Specific [place] Urine Protein Urine Glucose (UA) Urine Ketones Urine Occult Blood Urine Nitrate Urine Bilirubin Urine Urobilinogen Ur Leukocyte Esterase Urine RBC Urine WBC Ur Squamous Epith Cells Urine Bacteria Urine Mucus Ur Culture Indicated? SARS-CoV-2 (PCR) Negative Assessment & Plan Assessment & Plan narrative: Assessment: 1. Intractable right renal colic. 2. 8 mm right UPJ/renal calculus. 3. Retained right ureteral stent. Plan: 1. Schedule for cystoscopy/right ureteroscopic laser lithotripsy/right ureteral stent exchange today. 2. Future metabolic stone risk evaluation. Time Spent With Patient Critical Care time: I spent a total of [] minutes of critical care time on this patient's care today; this time is exclusive of procedural time.
[2021-07-28] MEDS: HYDROMORPHONE 0.5 MG INJ 1 MG IV (08:17)
[2021-07-28] MEDS: ONDANSETRON 4 MG/2 ML INJ IV ×2 (08:18→19:52)
[2021-07-28] MEDS: CEFAZOLIN 1 GM VIAL 2 GM IV ×2 (10:35→18:25)
[2021-07-28] MEDS: LACTATED RINGERS 500 ML 100 ML IV (10:46)
--- NOTE | 2021-07-28 15:36 | PC.NURSE ---
Pt arrived from ED at 0850, A&Ox3. Pt pain seems to be controlled with IV dilaudid q 1-2 hours 1mg. LR at 100 ml/hr. Pt c/o severe pain with voiding noted janusz urine blood tinged. VSS,afebrile on RA. Admission assessment completed. Removable jewlery removed, requesting to tape nipple piercings. Pt BG 83 no s/sx of hypoglycemia. NPO since yesterday. Endorsed to oncoming shift medication review.
--- NOTE | 2021-07-28 16:03 | DIET.PN1 ---
Dietary Progress Note Assessment: 35y F admitted for kidney stones screened by RD for recurrent kidney stones. Pt reports being dx c Covid 06/10/21 despite being fully vaccinated. Pt lost sense of taste and smell with meat and other protein foods tasting metallic to the point of not being able to swallow them without them coming back up. Pt tolerating water and pedialyte. Pt has record of her weights via bluetooth scale showing 12% unintentional weight loss in 6w (severe). Pt returned to work and was unable to help patient up off ground using brady lift secondary to weakness. Pt has had over 100 kidney stones since moving to [facility] 3y ago with no previous hx of the same. Pt in surgery now for lithotripsy. Ht: 140.8 cm Wt: 78.7 kg (-12% in 6w, severe) BMI: 34.3 UBW: 90.0kg Last BM: 07/25/21 (07/28/21 09:33) MNA: Adrian Score: 21 Diet: 07/28/21 07:31 NPO Diet Diet Modifications: NPO Type: NPO NOW for Procedure Labs: RBC 4.59 X10^6/uL (4.0-5.2) 07/27/21 19:55 Hgb 13.7 g/dL (12.0-16.0) 07/27/21 19:55 Hct 40.5 % (36-46) 07/27/21 19:55 Creatinine 0.70 mg/dL (0.52-1.04) 07/27/21 19:55 Nutrition Diagnosis: 1. Severe Acute Protein Calorie Malnutrition r/t taste changes and severe reduction in appetite aeb pt dx c covid 6w ago, 12% unintentional weight loss in 6w (severe) c associated weakness, pt unable to tolerate protein foods secondary to metallic taste, pt presents with excessive thigh skin indicating wray weight loss, pt primarily consuming water and pedialyte meeting <50% EER. 2. nutrition related knowledge deficit r/t kidney stone risk factors aeb pt admitted for lithotripsy of kidney stones, pt has had >100 kidney stones in past 3y, pt unclear what is causing kidney stones to form. EER: 80g PRO daily Monitoring/Evaluations: Recc pt be referred to nutrition on OP basis to address PCM and kidney stone MNT. Electronically Signed by: Katelyn Thomas 07/28/21 16:03 Clinical Dietitian [address] [id number]
[2021-07-28] MEDS: HYDROMORPHONE 2 MG INJ 1 MG IV ×3 (16:20→20:04)
--- NOTE | 2021-07-28 17:52 | PM.PREOP ---
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 Plain film KUB demonstrated intact position of recently placed right ureteral stent. Now to OR for definitive right ureteroscopic laser lithotripsy.
--- NOTE | 2021-07-28 17:58 | SUR.OPER ---
Lithotomy on padded OR bed, head on pillow, arms secured on padded arm boards at <90 degrees abduction. Legs secured in padded yellow fins stirrups.
[2021-07-28] MEDS: BELLADONNA/OPIUM SUPPOSITORIES 1 EACH PR (19:03)
--- NOTE | 2021-07-28 19:16 | P.OP_ITS ---
Operative Date/Time/Diagnoses Date of procedure: 07/28/21 Time of procedure: 19:16 Pre-op diagnosis: 1. Obstructing 8 mm proximal right ureteral calculus 2. Retained right ureteral stent 3. Intractable right renal colic/stent pain Post-op diagnosis: same Procedure & Clinicians Procedure: 1. Cystoscopy/right ureteroscopic laser lithotripsy. 2. Cystoscopy/right ureteral stent exchange (6 [place] times 22-32 cm multi- length). Same procedure as scheduled: Yes Indications: 1. Obstructing 8 mm right proximal ureteral calculus. 2. Retained right ureteral stent. 3. Intractable right renal colic/stent pain. Surgeon: Melody Park Click Yes if Unassisted: Yes Anesthesia Type: General Operative Notes Findings: 1. Urethra and bladder-only changes in interval is mild hyperemia and edema about the right ureteral orifice. 2. The proximal right ureteral calculus was impacted tightly with severe surrounding mucosal and submucosal edema. Removal of the right ureteral stent close the guidewire was more difficult than usual due to impaction of the index calculus and resultant friction upon withdrawal of the stent. Closure Type: not applicable Specimen(s): none sent Applied: other (Six [place] by 22-32 cm multi-length stent.) Estimated Blood Loss (mL): 0 Blood products transfused: none Procedure in detail: The patient was positioned supine and administered general anesthesia. She was then repositioned semi lithotomy and the lower abdomen, genitalia, and groin were then prepped and draped in sterile fashion. The 22 [place] panendoscope was then passed lower urinary tract with findings as described above. The foreign body grasper was then used to engage the distal end of the retained stent and bringing out to the perineum. A 0.35 hybrid guidewire was then advanced through the lumen of the indwelling stent under fluoroscopic and direct guidance. The stent was then backloaded off the wire discarded. Now the wire was secured to the drape. The semi rigid ureteral scope was then prepared and passed of lower urinary tract in the right ureter advanced to the level of the stone under direct visualization. All operating room personnel and patient were fitted with laser safety eyewear. A 100 micron laser fiber was then selected and advanced into the working port of the semi rigid ureteral scope. Laser lithotripsy was then commenced and the stone was broken down into minuscule fragments and sand under direct visualization. A subset of the total fragments and volume was then freed and cleared from the ureteral lumen using mechanical and hydrostatic mechanisms. Semi rigid ureteral scope was then removed. The panendoscope was then front loaded onto the previously positioned hybrid guidewire. A 6 [place] by 22-32 cm multi-length stent was then selected and advanced over the guidewire under dire ct and fluoroscopic guidance. No retrieval line was left attached. The bladder was then drained completely and all instrumentation was removed. The patient was then repositioned in supine, was awakened, and transferred to a gurney for transfer to PACU. Complications: none Post-operative Condition: stable Disposition: PACU Plan for aftercare: Discharge home.
[2021-07-28] MEDS: MEPERIDINE 50 MG/ML INJ 12.5 MG IV (19:59)
[2021-07-28] MEDS: FUROSEMIDE 20 MG/2 ML VIAL IV (20:13)
--- NOTE | 2021-07-28 20:23 | SUR.PHASEI ---
2015 woke up soon after surgery totally freaking out. Crying and rocking back and forth. In pain and nauseated. Dilaudid and demoral given without much result. Compazine ordered and given. Started to relax
[2021-07-28] MEDS: OXYCODONE/ACETAMINOPHEN 5/325 TABLET 1 TAB PO (20:31)
[2021-07-28] MEDS: LORazepam 2 MG/ML INJ 0.25 MG IV ×2 (20:32→20:42)
[2021-07-28] MEDS: ePHEDrine 50 MG/ML VIAL 25 MG IM (20:42)
--- NOTE | 2021-07-28 21:28 | SUR.PHASEI ---
2100 Patient finally calm. Transferred to acute care and report given
[2021-07-28] MEDS: HYDROMORPHONE 0.5 MG INJ IV (22:52)
[2021-07-28] MEDS: LACTATED RINGERS 1,000 ML 100 ML IV (23:59)
[2021-07-29 00:36] VITALS: BP 134/90; PULSE 96; RESP 16; TEMP 36.9; O2SAT 94
[2021-07-29] MEDS: LORazepam 2 MG/ML INJ 0.5 MG IV (00:40)
[2021-07-29] MEDS: KETOROLAC 30 MG/ML VIAL IV (02:19)
[2021-07-29] MEDS: OXYCODONE IR 10 MG TABLET PO ×3 (02:54→09:30)
[2021-07-29] MEDS: LORazepam 0.5 MG TABLET PO (05:59)
[2021-07-29 06:18] VITALS: BP 109/66; PULSE 82; RESP 16; TEMP 36.5; O2SAT 97
--- NOTE | 2021-07-29 06:24 | PC.NURSE ---
Addendum entered by Mendy Chua R.N. 07/29/21 06:39: Patient had one episode of vomiting, patient put tissues into the container with emesis so acurate measurement could not be done, but estimated 50cc total at 0635. Original Note: Late entry: Patient was complaining of pain and was requesting IV pain medication only. This RN explained that the use of IV pain medication cannot continue at home and adjusting oral pain medication as needed would help ensure the patient has proper pain control. This RN called Dr. Park at 0105 and explained the situation. Telephone orders were given for IV Toradol 30mg q6 PRN, 10mg Oxy PO q3 PRN, Tylenol 650mg PO q6 PRN, and 0.5mg Ativan PO were given. Patient has had good pain control with the 10mg Oxy PO and anxiety has decreased with one IV dose and one PO dose Ativan. (See MAR for doses and dose times). No other requests at this time.
[2021-07-29] MEDS: ONDANSETRON 4 MG/2 ML INJ IV (06:34)
--- NOTE | 2021-07-29 07:37 | P.DS_ITS ---
History of Present Illness History of Present Illness Date Patient Seen: 07/29/21 Time Patient Seen: 07:37 Chief complaint: KIDNEY STONES PAIN Narrative: The patient is a 35-year-old white female with a history of recurrent nephrolithiasis status post for previous ESWL by her reporting in the past that presents to the [facility] ED with complaint of intractable right renal colic. She underwent uncomplicated cystoscopy and placement right ureteral stent on 07/24/2021. She was to be seen this day in the Urology Clinic for follow-up and forced scheduling of definitive intervention pending urine cultures that were obtained on 07/24/2021. Final urine culture from that date has been reported as negative for pathogen. The patient had a plain film KUB obtained 07/27/2021, anticipation for review in the Urology Clinic today. Currently I am unable to pull up images for review on either [employer] PACS or [employer]. After discussion with Dr. Miller earlier this morning, the patient is admitted for pain control and definitive intervention of the obstructing 8 mm right UPJ/renal calculus. Discharge Providers Provider Date of admission: 07/28/21 01:52 Discharge Date: 07/29/21 Discharge provider: Melody Park MD Summary Hospital Course Discharge Diagnosis: 1. Intractable right renal colic/stent. 2. Obstructing 8 mm proximal right ureteral calculus. 3. Retained right ureteral stent. 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 Plain film KUB confirm appropriate positioning of the stent and presence of the stone adjacent to the stent within the proximal ureter. She has taken to the operating room last evening and underwent uncomplicated right ureteroscopic laser lithotripsy and right ureteral stent exchange. Due to later hour and closure of the patient's local pharmacy outpatient discharge was delayed due to the patient's inability to obtain postoperative oral narcotic analgesics. Her hospital course was marked by in order and requests in use of anxiolytics and opioid analgesics. She remained afebrile and with stable vital signs. On the morning of 07/29/2021 patient is stable for discharge. Exam Vital Signs (past 8 hours): - 07/29/21 00:36 07/29/21 06:18 Temperature 98.4 F 97.7 F Pulse Rate 96 H 82 Respiratory Rate 16 16 Blood Pressure 134/90 109/66 Pulse Oximetry 94 97 Oxygen Delivery Method Room Air Oxygen Flow Rate 0 Narrative Exam Narrative: She is sitting upright in bed engaged with her smart phone and in no acute distress. Chest-equal and unlabored expansion bilaterally. Heart-normal sinus rhythm. Objective Labs Result Diagrams: 07/27/21 19:55 07/27/21 19:55 [facility] Medical History Lumbar strain Nephrolithiasis Radicular pain of both lower extremities Surgical History History of lithotripsy Status post ORIF of fracture of ankle Social History household members: none Smoking Status: Never smoker alcohol intake: former Discharge Assessment & Plan Assessment and Plan Assessment: 1. Stable status post right ureteroscopic laser lithotripsy and right ureteral stent exchange for high-grade obstructing 8 mm right proximal ureteral calculus. Plan of Treatment: 1. Discharge today and follow up in the Urology Clinic, date specific to be determined. Discharge Plan Discharge Plan Patient Disposition: Home Provider Discharge Comment: Contact Urology Clinic 07/29/2021 to schedule follow-up visit. Discharge orders & Medications Prescriptions: New oxycodone 5 mg tablet 5 mg PO Q4H PRN (Reason: pain) Qty: 20 RF: 0 Continued acetaminophen [Tylenol Extra Strength] 500 mg tablet 500 mg PO Q6H PRNRF: 0 [id number]-qhltpkwmcnatm-gzxgujjg [Excedrin Migraine] 250-250-65 mg tablet 1 tab PO Q4-6H PRNRF: 0 tamsulosin 0.4 mg capsule 0.4 mg PO DAILY Qty: 30 RF: 0 ciprofloxacin HCl 500 mg tablet 500 mg PO Q12H Qty: 20 RF: 0 oxycodone 5 mg tablet 5 mg PO Q4H PRN (Reason: pain) Qty: 10 RF: 0 Discontinued meloxicam 15 mg tablet 15 mg PO DAILY Qty: 14 RF: 0 lidocaine [Lidoderm] 5 % adhesive patch,medicated 3 patch TOP DAILY Qty: 30 RF: 0 tizanidine 4 mg capsule 4 mg PO Q6-8H PRN (Reason: muscle spasticity) Qty: 10 RF: 0 hydrocodone-acetaminophen [[place]] 5-325 mg tablet 1 tab PO Q4-6H PRN (Reason: pain) Qty: 10 RF: 0 ketorolac 10 mg tablet 10 mg PO TID PRN (Reason: pain) Qty: 20 RF: 0 tamsulosin [Flomax] 0.4 mg capsule 0.4 mg PO DAILY Qty: 7 RF: 0 ondansetron 4 mg tablet,disintegrating 4 mg PO Q6H PRN (Reason: nausea and vomiting) Qty: 30 RF: 0 Diet/Activity/Treatments Diet: Diet as Tolerated Activity: Ad leila beginning 07/29/2021. Skin/Wound/Dressing Care Report to your healthcare provider any signs of infection, such as:: chills, fever, night sweats and increased pain Visit Report/Discharge Packet Instructions: DI for Cystoscopy, DI for Prescription Opioid Use, DI for Laser Lithotripsy Stand Alone Forms: Surgery Discharge Discharge Data Attending Provider: Melody Park VTE Deep Vein Thrombosis/Pulmonary Embolism Present on Admission: No
[2021-07-29 08:50] VITALS: BP 144/87; PULSE 82; RESP 16; TEMP 35.8; O2SAT 98
--- NOTE | 2021-07-29 11:29 | PC.NURSE ---
pt discharged to home following removing her own iv access- answered all questions to her satisfaction and left hospital
== END 2021-07-29 11:29 | disposition home or self-care (01) ==
LOC: ED 07-28 01:44 → AC 07-28 01:53
PROVIDERS: Emergency Medicine; Admitting Provider Specialist; Emergency Provider Emergency Medicine; Visit Provider Specialist
PROC: (CPT 52356; principal; 2021-07-28 17:00)
DX: N20.1 Calculus of ureter (principal); Z96.0 Presence of urogenital implants; Z20.822 Contact with and (suspected) exposure to COVID-19
CPT/HCPCS: 52356; 36415; 74018; 76000; 80053; 81001; 82962; 85025; 87086; 87635; 96361; 96365; 96372; 96374; 96375; 96376; 99284; C1771; C9803; G0378; J0690; J0780; J1100; J1170; J1200; J1885; J1940; J2060; J2175; J2250; J2405; J2704; J3010

== ENCOUNTER 2021-08-03 09:22 | Emergency (ER) | payer OTHER, SELFPAY ==
[2021-07-29 10:20] VITALS: BMI 34.3
[2021-08-03 09:59] VITALS: BP 139/84; PULSE 66; RESP 17; TEMP 37; O2SAT 99; BMI 28.3
[2021-08-03 10:54] LABS: Appearance Urine UA CLOUDY; Bilirubin Urine UA NEGATIVE (NEGATIVE); Color Urine UA RED; Glucose Urine UA TRACE g/dL (Negative); Ketones Urine UA TRACE (NEGATIVE); Leukocyte Esterase Urine UA 2+ (NEGATIVE); Nitrite Urine UA POSITIVE (Negative); Occult Blood Urine UA 3+ (Negative); Protein Urine UA 3+ (Negative); Specific Gravity Urine UA 1.025 (1.000-1.035)
[2021-08-03 11:00] LABS: pH Urine UA 6.5 (4.5-8.0)
[2021-08-03 11:09] LABS: Bacteria Urine None Seen; RBC Urine 30-100/HPF (0-5/HPF); WBC Urine 10-30/HPF (0-5/HPF)
[2021-08-03 11:10] LABS: Culture Indicated Urine Specimen Cultured
--- NOTE | 2021-08-03 11:36 | ED.FEMALEGU ---
HPI - Female Genitourinary General Chief complaint: Urogenital-Female Stated complaint: post procedural complications, hematuria Time Seen by Provider: 08/03/21 10:45 Source: patient Mode of arrival: Ambulatory History of Present Illness HPI Narrative: 35-year-old female nonsmoker with history of complex kidney stones presents for ongoing symptoms. She has had a large right-sided kidney stone and was seen by Urology for the placement of stent which had been in place, recently was removed and then replaced again. She is here today because of increasing right-sided and right lower quadrant pain as well as the passage of norman hematuria for at least the past 24 hours. She feels dizzy, weak and lightheaded. She feels quite fatigued and nauseated. She denies chest pain or shortness of breath. She denies fever or chills. Related Data Home Medications Medication Instructions Recorded Confirmed oxybutynin chloride 5 mg 5 mg PO DAILY tab 08/04/21 08/04/21 tablet,extended release 24 hr Previous Rx's Medication Instructions Recorded ciprofloxacin HCl 500 mg tablet 500 mg PO Q12H #20 tab 07/24/21 oxycodone 5 mg tablet 5 mg PO Q4H PRN #20 tab 07/28/21 tamsulosin 0.4 mg capsule 0.4 mg PO DAILY #30 cap 07/28/21 Allergies Allergy/AdvReac Type Severity Reaction Status Date / Time sulfamethoxazole Allergy Severe Seizures, Verified 08/04/21 08:29 [From Bactrim] rash, fever, swelling trimethoprim [From Bactrim] Allergy Severe Seizures, Verified 08/04/21 08:29 rash, fever, swelling morphine AdvReac Intermediate Vomiting Verified 08/04/21 08:29 Review of Systems Review of Systems Narrative: GENERAL: See HPI HEENT: Denies sinus pain, ear pain, sore throat, difficulty swallowing, dizziness. RESPIRATORY: Denies dyspnea, cough, wheezing, hemoptysis, sputum. CARDIOVASCULAR: Denies chest pain, palpitations, orthopnea, edema, GASTROINTESTINAL: See HPI : See HPI MUSCULOSKELETAL: denies weakness, joint pain, or bony pain SKIN: Denies rash, skin lesions, or other NEUROLOGIC: Denies weakness, headache, numbness, change in speech, confusion, seizures, incoordination. PSYCHIATRIC: No concerning psychosocial issues. 12 point review of systems is negative except for those stated above Patient History Medical History (Updated 10/26/21 @ 09:40 by Melody Park MD) Asthma Back pain Depression History of nephrolithiasis History of UTI HTN (hypertension) Lumbar strain Migraines Nephrolithiasis Radicular pain of both lower extremities Surgical History History of lithotripsy History of ureter stent Status post ORIF of fracture of ankle Family History Mother Cancer Hyperlipidemia Hypertension Father Hyperlipidemia alcohol intake frequency: holidays/special occasions only Substance Use Type: marijuana Exam Narrative Exam Narrative: GENERAL: [35 year old patient appears stated age. Well-developed patient, in mild distress. HEAD: Atraumatic. Normocephalic. EYES: Pupils equal round and reactive. Extraocular motions intact. No scleral icterus. No injection or drainage. ENT: Nose without bleeding, purulent drainage. Throat without erythema, tonsillar hypertrophy or exudate. Airway patent. NECK: Trachea midline. Non tender CARDIOVASCULAR: Regular rate and rhythm without murmurs, gallops, or rubs. RESPIRATORY: Clear to auscultation. Breath sounds equal bilaterally. No wheezes, rales, or rhonchi. GASTROINTESTINAL: Abdomen soft, non-tender, nondistended. EXTREMITIES: No edema or joint tenderness. BACK: Nontender without deformity or crepitance. No flank tenderness. NEURO: AOx3. SKIN: No rash or erythema of visible areas Initial Vital Signs Initial Vital Signs: Vital Signs Temperature 98.6 F 08/03/21 09:59 Pulse Rate 66 08/03/21 09:59 Respiratory Rate 17 08/03/21 09:59 Blood Pressure 139/84 08/03/21 09:59 Pulse Oximetry 99 08/03/21 09:59 Course Orders Ordered: Discontinued Medications Lactated Ringer's (Lactated Ringers) 1,000 mls @ 1,000 mls/hr IV BOLUS ONE Stop: 08/03/21 12:46 Last Infusion: 08/03/21 14:54 Dose: 0 mls/hr Documented by: Admin: 08/03/21 12:42 Dose: 1,000 mls/hr Documented by: SKYLAR Ondansetron HCl (Ondansetron 4 Mg/2 Ml Inj) 4 mg IV NOW ONE Stop: 08/03/21 11:48 Last Admin: 08/03/21 12:42 Dose: 4 mg Documented by: SKYLAR Ondansetron HCl (Ondansetron 4 Mg/2 Ml Inj) 4 mg IV NOW ONE Stop: 08/03/21 12:32 Last Admin: 08/03/21 12:31 Dose: Not Given Documented by: SKYLAR Vital Signs Vital signs: Vital Signs - 8 hr 08/03/21 09:59 08/03/21 11:47 08/03/21 11:48 Temperature 98.6 F Pulse Rate 66 65 Respiratory Rate 17 Blood Pressure 139/84 145/99 H Pulse Oximetry 99 98 100 08/03/21 12:00 Temperature Pulse Rate 73 Respiratory Rate Blood Pressure Pulse Oximetry 95 MDM - Female Genitourinary Lab Data Result diagrams: 08/03/21 11:47 08/03/21 12:00 Labs: Lab Results 08/03/21 08/03/21 08/03/21 Range/Units 10:06 11:47 11:53 WBC 10.2 (4.5-11.0) X10^3/uL RBC 4.49 (4.0-5.2) X10^6/uL Hgb 13.5 (12.0-16.0) g/dL Hct 39.4 (36-46) % MCV 87.8 (80-100) fL MCH 30.0 (26-34) PG MCHC 34.2 (30-36) % RDW 13.7 (11.6-14.8) % Plt Count 405 H (150-400) X10^3/uL Neut % (Auto) 64.8 (50-75) % Lymph % (Auto) 21.7 L (25-40) % [place] % (Auto) 8.4 (3-14) % Eos % (Auto) 3.9 (2-4) % Baso % (Auto) 1.2 (0-2) % Neut # (Auto) 6600 (9336-4721) /uL Lymph # (Auto) 2200 (7199-9208) /uL [place] # (Auto) 900 (0-900) /uL Eos # (Auto) 400 (0-450) /uL Baso # (Auto) 100 (0-100) /uL Sodium (137-145) mmol/L Potassium (3.4-5.1) mmol/L Chloride (98-107) mmol/L Carbon Dioxide (22-32) mmol/L BUN (7-17) mg/dL Creatinine (0.52-1.04) mg/dL Estimated GFR (>60) mL/min BUN/Creatinine Ratio (6-22) Glucose (70-100) mg/dL Lactate (0.7-2.1) mmol/L Calcium (8.4-10.2) mg/dL Total Bilirubin (0.2-1.3) mg/dL AST (14-36) IU/L ALT (<35) IU/L Alkaline Phosphatase (38-126) U/L Total Protein (6.3-8.2) g/dL Albumin (3.5-5.0) g/dL Globulin (1.7-4.1) g/dL Albumin/Globulin Ratio (1.0-2.8) Urine Color Red Urine Appearance Cloudy Urine pH 6.5 (4.5-8.0) Ur Specific [place] 1.025 (1.000-1.035) Urine Protein 3+ H (Negative) Urine Glucose (UA) Trace H (Negative) g/dL Urine Ketones Trace H (NEGATIVE) Urine Occult Blood 3+ H (Negative) Urine Nitrate Positive H (Negative) Urine Bilirubin Negative (NEGATIVE) Urine Urobilinogen 1.0 (0.2) E.U./dL Ur Leukocyte Esterase 2+ H (NEGATIVE) Urine RBC 30-100/hpf H (0-5/HPF) Urine WBC 10-30/hpf H (0-5/HPF) Urine Bacteria None seen (None) Ur Culture Indicated? Specimen cultured Urine Test Negative (Negative) SARS-CoV-2 (PCR) (Negative) 08/03/21 08/03/21 08/03/21 Range/Units 12:00 12:00 12:00 WBC (4.5-11.0) X10^3/uL RBC (4.0-5.2) X10^6/uL Hgb (12.0-16.0) g/dL Hct (36-46) % MCV (80-100) fL MCH (26-34) PG MCHC (30-36) % RDW (11.6-14.8) % Plt Count (150-400) X10^3/uL Neut % (Auto) (50-75) % Lymph % (Auto) (25-40) % [place] % (Auto) (3-14) % Eos % (Auto) (2-4) % Baso % (Auto) (0-2) % Neut # (Auto) (1276-4128) /uL Lymph # (Auto) (7475-9684) /uL Huntington # (Auto) (0-900) /uL Eos # (Auto) (0-450) /uL Baso # (Auto) (0-100) /uL Sodium 135 L (137-145) mmol/L Potassium 3.8 (3.4-5.1) mmol/L Chloride 104 (98-107) mmol/L Carbon Dioxide 23 (22-32) mmol/L BUN 11 (7-17) mg/dL Creatinine 0.75 (0.52-1.04) mg/dL Estimated GFR > 60.0 (>60) mL/min BUN/Creatinine Ratio 14.7 (6-22) Glucose 104 H (70-100) mg/dL Lactate 0.7 (0.7-2.1) mmol/L Calcium 9.4 (8.4-10.2) mg/dL Total Bilirubin 0.8 (0.2-1.3) mg/dL AST 22 (14-36) IU/L ALT 24 (<35) IU/L Alkaline Phosphatase 71 (38-126) U/L Total Protein 7.3 (6.3-8.2) g/dL Albumin 4.4 (3.5-5.0) g/dL Globulin 2.9 (1.7-4.1) g/dL Albumin/Globulin Ratio 1.5 (1.0-2.8) Urine Color Urine Appearance Urine pH (4.5-8.0) Ur Specific [place] (1.000-1.035) Urine Protein (Negative) Urine Glucose (UA) (Negative) g/dL Urine Ketones (NEGATIVE) Urine Occult Blood (Negative) Urine Nitrate (Negative) Urine Bilirubin (NEGATIVE) Urine Urobilinogen (0.2) E.U./dL Ur Leukocyte Esterase (NEGATIVE) Urine RBC (0-5/HPF) Urine WBC (0-5/HPF) Urine Bacteria (None) Ur Culture Indicated? Urine Test (Negative) SARS-CoV-2 (PCR) Positive H (Negative) Imaging Data CT scan - abdomen/pelvis: Radiologist's Impression: [address] [address] [address] Scan Report Signed Patient: Pavithra Comer MR#: [id number] : 1985 Acct:[id number] Age/Sex: 35 / F Date of Service: 08/03/21 Loc: ED Accession Number: [id number] ?? Procedure: CT abdomen pelvis wo/w con Ordering Provider: Sebastian Perry D.O. PROCEDURE:? CT ABDOMEN PELVIS WO/W CON ? INDICATIONS:? severe pain, gross hematuria, fever chills, recent urologic ? TECHNIQUE:? Optional 5 mm thick noncontrast images acquired from the diaphragm to the symphysis pubis.? After the administration of intravenous contrast, 5 mm thick images acquired from the diaphragm to the symphysis pubis after a 10-minute delay.? 2 mm thick coronal and sagittal reformats were then performed of the kidneys and ureters.? For radiation dose reduction, the following was used:? automated exposure control, adjustment of mA and/or kV according to patient size.? ? COMPARISON:? [facility], CR, XR ABDOMEN 1V, 07/28/2021, 18:38.? [facility], CR, XR KUB, 07/27/2021, 19:26.? [facility], CT, CT ABDOMEN PELVIS WO CON, 07/24/2021, 5:40.? [facility], CT, CT KIDNEY URETER BLADDER (KUB), 05/23/2019, 18:38.? [facility], CT, CT KUB, 07/26/2021, 12:31. ? FINDINGS:? Image quality:? Excellent.? ? Lung bases:? Lung bases are clear.? Heart size is normal.? Small hiatal hernia. ? Urinary system:? There is a right ureteral stent, appropriately formed both proximally and distally.? There is a 3 x 6 mm linear hyperdensity in the proximal right ureter compatible with a right ureteral stone.? There is mild right hydronephrosis and perinephric stranding and periureteral stranding. ? Small nonobstructive renal calculi are seen bilaterally measuring 1-2 mm. ? Both kidneys are normal in size.? No perinephric fat stranding.? There is normal symmetric bilateral renal enhancement.? Mild right hydronephrosis.? Mild uroepithelial thickening of the right? renal pelvis and right ureter.? Left renal calyces appear normal in morphology when filled with contrast.? The right ureter is mildly dilated.? The left ureter is normal in caliber.? Bladder wall thickness is normal.? No calcified bladder stones.? Other solid organs:? Liver is normal in size and enhancement.? Gallbladder is normal.? Biliary system is non dilated.? Pancreas enhances normally.? Spleen is normal in size and enhancement.? No adrenal nodules.? ? Peritoneum and bowel:? Bowel loops demonstrate normal wall thickness and caliber.? Normal appendix.? No free fluid or air.? ? Nodes and vessels:? No retroperitoneal or mesenteric adenopathy by size criteria.? Aorta and inferior vena cava are normal in size.? ? Abdominal wall:? No ventral hernias.? ? Pelvis:? Uterus and ovaries are normal.? There is an IUD.? No pathologic free pelvic fluid.? No inguinal hernias or adenopathy.? ? Bones:? No suspicious bony lesions.? No vertebral body compression fractures.? ? IMPRESSION:? ? 1. There is a right ureteral stent.? A 3 x 6 mm stone is seen in the proximal right ureter.? There is mild right hydronephrosis.? Mild uroepithelial thickening of the right renal pelvis and proximal right ureter with mild perinephric stranding and periureteral stranding.? No perinephric fluid collection to suggest urinoma. ? 2. Small nonobstructive renal calculi bilaterally. ? ? ? The result was discussed with Dr. Perry. ? Dictated by: Dea Kenny M.D. on 08/03/2021 at 13:26 ? ? Approved by: Dea Kenny M.D. on 08/03/2021 at 14:36 ? [facility] Narrative Medical decision making narrative: Patient presents with hematuria over the past few days and generally feels unwell she is achy with chills some sore throat and cough and feels unwell. She has recently had urologic procedures including 2 stents. Her evaluation is largely very reassuring. Labs are reassuring, patient has been on Cipro which I have instructed her to continue. The that imaging would suggest against any significant complication as a consequence of her stent placement. She was diagnosed with COVID on this visit. It is likely that she feels unwell from the COVID. She is instructed to continue taking the Cipro as I mentioned and follow-up with urology. Return precautions given and questions answered to her apparent satisfaction Discharge Plan Departure Patient Disposition: Home Clinical Impression: Hematuria, Acute flank pain, COVID-19 Instructions: DI for Hematuria, DI for COVID-19 (Suspected or Confirmed ) Activity Restrictions/Additional Instructions: *You have been diagnosed with [ COVID-19] *What to do: * per recommendations from the CDC and the [facility] Department of Health * stay home except to get medical care. Restrict activities outside your home, except for getting medical care. Do not go to work, school, or public areas. Avoid using public transportation, ride sharing, or taxis. * separate yourself from other people in your home. * call ahead before visiting your doctor * Wear a facemask * Cover your coughs and sneezes * Clean your hands often * Avoid sharing household items * Clean all high-touch services every day * Monitor your symptoms and seek prompt medical attention if your illness is worsening, particularly with difficulty in breathing. You may discontinue your isolation when: 1. You have been fever-free for at least 24 hours without the use of fever reducing medication, AND 2. Your symptoms are getting better 3. At least 10 days have passed since symptoms first appeared Individuals with laboratory confirmed COVID-19 who have not had any symptoms may discontinue home isolation when at least 10 days have passed since the date of their first COVID-19 diagnostic test and have had no subsequent illness Prescriptions: No Action tamsulosin 0.4 mg capsule 0.4 mg PO DAILY Qty: 30 RF: 0 oxycodone 5 mg tablet 5 mg PO Q4H PRN (Reason: pain) Qty: 20 RF: 0 ciprofloxacin HCl 500 mg tablet 500 mg PO Q12H Qty: 20 RF: 0 oxybutynin chloride 5 mg tablet extended release 24hr 5 mg PO DAILY RF: 0 Stand Alone Forms: Work Release Note
[2021-08-03 11:47] VITALS: O2SAT 98
[2021-08-03 11:48] VITALS: BP 145/99; PULSE 65; PULSE 70; O2SAT 100; O2SAT 99
[2021-08-03 12:00] VITALS: PULSE 73; O2SAT 95
[2021-08-03 12:09] LABS: Pregnancy Test Urine Negative (Negative)
--- NOTE | 2021-08-03 12:11 | DI.CT.S_ITS ---
PROCEDURE: CT ABDOMEN PELVIS WO/W CON INDICATIONS: severe pain, gross hematuria, fever chills, recent urologic TECHNIQUE: Optional 5 mm thick noncontrast images acquired from the diaphragm to the symphysis pubis. After the administration of intravenous contrast, 5 mm thick images acquired from the diaphragm to the symphysis pubis after a 10-minute delay. 2 mm thick coronal and sagittal reformats were then performed of the kidneys and ureters. For radiation dose reduction, the following was used: automated exposure control, adjustment of mA and/or kV according to patient size. COMPARISON: [facility], CR, XR ABDOMEN 1V, 07/28/2021, 18:38. [facility], CR, XR KUB, 07/27/2021, 19:26. [facility], CT, CT ABDOMEN PELVIS WO CON, 07/24/2021, 5:40. [facility], CT, CT KIDNEY URETER BLADDER (KUB), 05/23/2019, 18:38. [facility], CT, CT KUB, 07/26/2021, 12:31. FINDINGS: Image quality: Excellent. Lung bases: Lung bases are clear. Heart size is normal. Small hiatal hernia. Urinary system: There is a right ureteral stent, appropriately formed both proximally and distally. There is a 3 x 6 mm linear hyperdensity in the proximal right ureter compatible with a right ureteral stone. There is mild right hydronephrosis and perinephric stranding and periureteral stranding. Small nonobstructive renal calculi are seen bilaterally measuring 1-2 mm. Both kidneys are normal in size. No perinephric fat stranding. There is normal symmetric bilateral renal enhancement. Mild right hydronephrosis. Mild uroepithelial thickening of the right renal pelvis and right ureter. Left renal calyces appear normal in morphology when filled with contrast. The right ureter is mildly dilated. The left ureter is normal in caliber. Bladder wall thickness is normal. No calcified bladder stones. Other solid organs: Liver is normal in size and enhancement. Gallbladder is normal. Biliary system is non dilated. Pancreas enhances normally. Spleen is normal in size and enhancement. No adrenal nodules. Peritoneum and bowel: Bowel loops demonstrate normal wall thickness and caliber. Normal appendix. No free fluid or air. Nodes and vessels: No retroperitoneal or mesenteric adenopathy by size criteria. Aorta and inferior vena cava are normal in size. Abdominal wall: No ventral hernias. Pelvis: Uterus and ovaries are normal. There is an IUD. No pathologic free pelvic fluid. No inguinal hernias or adenopathy. Bones: No suspicious bony lesions. No vertebral body compression fractures. IMPRESSION: 1. There is a right ureteral stent. A 3 x 6 mm stone is seen in the proximal right ureter. There is mild right hydronephrosis. Mild uroepithelial thickening of the right renal pelvis and proximal right ureter with mild perinephric stranding and periureteral stranding. No perinephric fluid collection to suggest urinoma. 2. Small nonobstructive renal calculi bilaterally. The result was discussed with Dr. Perry. Dictated by: Dea Kenny M.D. on 08/03/2021 at 13:26 Approved by: Dea Kenny M.D. on 08/03/2021 at 14:36
[2021-08-03 12:13] LABS: Add Manual Diff / Slide Review NO; Basophils Absolute Auto 100 /uL (0-100); Basophils Percent Auto 1.2 % (0-2); Eosinophils Absolute Auto 400 /uL (0-450); Eosinophils Percent Auto 3.9 % (2-4); Hematocrit 39.4 % (36-46); Hemoglobin 13.5 g/dL (12.0-16.0); Lymphocytes Absolute Auto 2200 /uL (1100-4500); Lymphocytes Percent Auto 21.7 % (25-40); Mean Corpuscular HGB Conc 34.2 % (30-36); Mean Corpuscular Volume 87.8 fL (80-100); Monocytes Absolute Auto 900 /uL (0-900); Monocytes Percent Auto 8.4 % (3-14); Neutrophils Absolute Auto 6600 /uL (1500-7000); Neutrophils Percent Auto 64.8 % (50-75); Platelet Count 405 X10^3/uL (150-400); Red Blood Cell Count 4.49 X10^6/uL (4.0-5.2); Red Cell Distribution Width 13.7 % (11.6-14.8); White Blood Cell Count 10.2 X10^3/uL (4.5-11.0)
[2021-08-03 12:40] LABS: Lactate (Lactic Acid) 0.7 mmol/L (0.7-2.1)
[2021-08-03 12:41] LABS: Alanine Aminotransferase 24 IU/L (<35); Albumin 4.4 g/dL (3.5-5.0); Albumin Globulin Ratio 1.5 (1.0-2.8); Alkaline Phosphatase 71 U/L (38-126); Aspartate Aminotransferase 22 IU/L (14-36); BUN Creatinine Ratio 14.7 (6-22); Bilirubin Total 0.8 mg/dL (0.2-1.3); Blood Urea Nitrogen 11 mg/dL (7-17); Calcium 9.4 mg/dL (8.4-10.2); Carbon Dioxide 23 mmol/L (22-32); Chloride 104 mmol/L (98-107); Estimated Glomerular Filt Rate > 60.0 mL/min (>60); Globulin 2.9 g/dL (1.7-4.1); Glucose 104 mg/dL (70-100); HEMOLYSIS < 15 (0-50); Potassium 3.8 mmol/L (3.4-5.1); Sodium 135 mmol/L (137-145); Total Protein 7.3 g/dL (6.3-8.2)
[2021-08-03] MEDS: LACTATED RINGERS 1,000 ML 1000 ML IV (12:42)
[2021-08-03] MEDS: ONDANSETRON 4 MG/2 ML INJ IV (12:42)
[2021-08-03 13:26] LABS: COVID19 - ADMIT (NP swab/PCR) POSITIVE (Negative)
[2021-08-03 14:43] VITALS: BP 149/91; PULSE 71; RESP 18; O2SAT 99
== END 2021-08-03 14:52 | disposition home or self-care (01) ==
PROVIDERS: Emergency Provider Emergency Medicine
DX: R31.9 Hematuria, unspecified (principal); R10.31 Right lower quadrant pain; U07.1 COVID-19; R42 Dizziness and giddiness
CPT/HCPCS: 36415; 74178; 80053; 81001; 81025; 83605; 85025; 87040; 87086; 87635; 96361; 96374; 99284; C9803; J2405; Q9967